=== PATIENT | female | born 1965 | race African-American/Black ===

== ENCOUNTER 2019-02-18 12:06 | Inpatient (IN) | payer OTHER ==
--- NOTE | 2019-02-18 12:26 | PDOC ---
Rapid Medical Evaluation Time Seen by Provider: 02/18/19 12:24 Medical Evaluation: 02/18/19 12:24 I have performed a brief in-person evaluation of this patient. The patient presents with a chief complaint of: short of breath Pertinent physical exam findings:stable and in NAD, non-focal I have ordered the following:labs, ekg The patient will proceed to the ED for further evaluation.
--- NOTE | 2019-02-18 12:38 | PDOC ---
History of Present Illness - General Chief Complaint: Shortness of Breath Stated Complaint: DIFF BREATHING Time Seen by Provider: 02/18/19 12:24 - History of Present Illness Initial Comments: 02/18/19 13:47 The patient is a 53 year old female with a history of HTN, HLD, DM, COPD, CHF, Bronchitis, who presents for evaluation of shortness of breath and chest pain. The patient reports a 2 day history of worsening shortness of breath worse with lying flat at night prompting her presentation to the ED for further evaluation. She also notes intermittent bilateral poorly described chest pain. She notes that she was seen at [facility] 1 month ago and diagnosed with a pneumonia after a chest CTA. She otherwise denies fevers, chills, nausea, vomiting, abdominal pain, or changes with urination or bowel movements. Past History - Past Medical History Allergies/Adverse Reactions: Allergies Allergy/AdvReac Type Severity Reaction Status Date / Time doxycycline Allergy Verified 02/18/19 18:11 erythromycin base Allergy Verified 02/18/19 18:11 Penicillins Allergy Verified 02/18/19 18:11 tetracycline Allergy Verified 02/18/19 18:11 Home Medications: Ambulatory Orders Aspirin [ASA -] 81 mg PO DAILY 02/18/19 Atorvastatin Ca [Lipitor] 40 mg PO HS 02/18/19 Diazepam [Valium] 5 mg PO ONCE 02/18/19 Gabapentin 300 mg PO DAILY 02/18/19 Metoprolol Succinate 25 mg PO DAILY 02/18/19 Omeprazole 20 mg PO DAILY 02/18/19 Paroxetine HCl [Paxil -] 10 mg PO DAILY 02/18/19 Sotalol HCl [Betapace AF] 80 mg PO DAILY 02/18/19 Tiotropium Br/Olodaterol HCl [Stiolto Respimat Inhal [place]] 2.5 puff PO DAILY Varenicline Tartrate [Chantix -] 10 mg PO DAILY 02/18/19 Warfarin Sodium [Coumadin] 10 mg PO DAILY 02/18/19 - Suicide/Smoking/Psychosocial Hx Smoking History: Never smoked Have you smoked in the past 12 months: No Information on smoking cessation initiated: No Hx Alcohol Use: No Drug/Substance Use Hx: No Review of Systems - Review of Systems Comments:: 02/18/19 13:55 Constitutional: No fevers, chills, fatigue, malaise HEENT: No Rhinorrhea, nasal congestion, visual changes Cardiovascular: Chest pain, Lightheadedness. No syncope, palpitations, Respiratory: SOB. No Cough, Hemoptysis, Gastrointestinal: No Abdominal pain, Nausea, Vomiting, Constipation, Diarrhea, Melena Genitourinary: No Dysuria, Frequency, Urgency, Hesitancy, Hematuria, Flank pain Musculoskeletal: No Myalgia, arthralgia Skin: No rashes, itching, bruising, pallor Neurologic: No Headache, Dizziness, Numbness, Weakness, or Tingling Psychiatric: No Hallucinations. No SI or HI *Physical Exam - Vital Signs Last Vital Signs Temp Pulse Resp BP Pulse Ox 98.2 F 71 16 155/85 100 02/18/19 12:26 02/18/19 12:26 02/18/19 12:26 02/18/19 12:26 02/18/19 12:26 - Physical Exam Comments: 02/18/19 13:56 General Appearance: Nourished. No Apparent Distress HEENT: No Pharyngeal Erythema, Tonsillar Exudate, Tonsillar Erythema Neck: No Cervical Lymphadenopathy Respiratory/Chest: Decreased breath sounds at the bases bilaterally. No Crackles, Rales, Rhonchi, Wheezing Cardiovascular: Regular Rhythm, Regular Rate. Systolic murmur noted on exam. No Gallops, Rubs Gastrointestinal/Abdominal: Normal Bowel Sounds, Soft. No Guarding, Rebound, Tenderness Musculoskeletal: No CVA Tenderness Extremity: Normal Capillary Refill Integumentary: Normal Color, Dry, Warm Neurologic: Fully Oriented, Alert, Normal Mood/Affect, Normal Response, ED Treatment Course - LABORATORY CBC & Chemistry Diagram: 02/18/19 12:54 02/18/19 12:27 Medical Decision Making - Medical Decision Making 02/18/19 13:57 The patient is a 53 year old female with a history of HTN, HLD, DM, COPD, CHF, Bronchitis, who presents for evaluation of shortness of breath and chest pain. Differential includes but is not limited to: COPD, CHF, ACS, Infectious, Metabolic Derangement. Given the patient's history and physical exam, we will obtain a cbc, cmp, troponin, bnp, coags, chest plain film, ekg to evaluate further. We will continue to monitor and reassess while here in the ED. 02/18/19 16:50 CBC, cmp are unremarkable. Troponin is unremarkable. BNP is elevated to 2000s. Chest plain film demonstrates pulmonary congestion. We discussed the case with the patient's regional sales executive Dr. Yanez who recommended admission for diuriesis. We discussed the case with the covering regional sales executive. Dr. Aceves who has come to evaluate the patient. We discussed the case with the admitting team who accepted the patient for admission. We will treat the patient with lasix here in the ED. *DC/Admit/Observation/Transfer Diagnosis at time of Disposition: SOB (shortness of breath) CHF (congestive heart failure) Qualifiers: Heart failure type: unspecified Heart failure chronicity: unspecified Qualified Code(s): I50.9 - Heart failure, unspecified - Discharge Dispostion Condition at time of disposition: Stable Decision to Admit order: Yes - Referrals - Patient Instructions - Post Discharge Activity
[2019-02-18 13:25] LABS: BASO % 1.5 % (0-2.0); EOS % 1.4 % (0-4.5); HEMATOCRIT 29.2 % (32.4-45.2); HEMOGLOBIN 8.9 GM/dL (10.7-15.3); LYMPH % 8.1 % (8-40); MCHC 30.4 g/dl (32.0-36.0); MEAN CELL VOLUME 63.3 fl (80-96); MEAN PLT VOLUME 8.5 fl (7.5-11.1); MONO % 13.3 % (3.8-10.2); NEUT % 75.7 % (42.8-82.8); PLATELET COUNT 368 K/MM3 (134-434); RBC 4.61 M/mm3 (3.60-5.2); RDW 24.2 % (11.6-15.6); WHITE BLOOD COUNT 10.5 K/mm3 (4.0-10.0)
[2019-02-18 13:33] LABS: MCH 19.2 pg (25.7-33.7)
[2019-02-18 13:41] LABS: INR 3.17 (0.83-1.09); PROTHROMBIN TIME (PATIENT) 37.8 SEC (9.7-13.0)
[2019-02-18 13:44] LABS: ACTIVATED PTT 47.9 SECONDS (25.2-36.5)
[2019-02-18 13:56] LABS: ALBUMIN 3.7 g/dl (3.4-5.0); ALK PHOS 74 U/L (45-117); ANION GAP 8 MMOL/L (8-16); BILIRUBIN,TOTAL 0.7 mg/dL (0.2-1); BLOOD UREA NITROGEN 10.8 mg/dL (7-18); CALCIUM 8.9 mg/dL (8.5-10.1); CHLORIDE 109 mmol/L (98-107); CO2 26 mmol/L (21-32); CREATININE 0.9 mg/dL (0.55-1.3); GLUCOSE,RANDOM 107 mg/dL (74-106); N-TERMINAL BNP 2014.1 pg/ml (5-125); POTASSIUM 4.3 mmol/L (3.5-5.1); SGOT/AST 23 U/L (15-37); SGPT/ALT 32 U/L (13-61); SODIUM 142 mmol/L (136-145); TOT PROT 7.7 g/dl (6.4-8.2)
[2019-02-18] MEDS ORDERED: FUROSEMIDE 40 MG/4 ML INJECTABLE VIAL IVPUSH ONE ×2 (14:43→15:05)
[2019-02-18 14:45] LABS: ANISOCYTOSIS 2+; MACROCYTOSIS 0; PLATELET ESTIMATE NORMAL; TARGET CELLS 1+
[2019-02-18] MEDS ORDERED: FUROSEMIDE 40 MG/4 ML INJECTABLE VIAL ONE (15:02)
--- NOTE | 2019-02-18 15:16 | PDOC ---
Documentation entered by Rosmery Rodriguez SCRIBE, acting as scribe for Sharyn Mohr MD. Sharyn Mohr MD: This documentation has been prepared by the Jennifer rome Mackenzie, SCRIBE, under my direction and personally reviewed by me in its entirety. I confirm that the documentation accurately reflects all work , treatment, procedures, and medical decision making performed by me. Attending Attestation - Resident Resident Name: Anthony Patel - ED Attending Attestation I have performed the following: I have examined & evaluated the patient, The case was reviewed & discussed with the resident, I agree w/resident's findings & plan, Exceptions are as noted - HPI HPI: The patient is a 53 year old female, with a significant PMH of CHF, HTN, DM, recent pneumonia (diagnosed 3 weeks ago), and 5 lymph nodes in her lungs, who presents to the emergency department with progressively worsening SOB and chest pain for 2 days. Patient reports she had been on at home oxygen treatments since being diagnosed with pneumonia 3 weeks ago. Last night however, despite administering her oxygen she had extreme difficulty breathing, sharp chest pain , and a cough that kept her up all night. Patient also notes she has been told she needs an MVR. The patient denies headache and dizziness. Denies fever, chills, nausea, vomiting, diarrhea and constipation. Denies dysuria, frequency, urgency and hematuria. Allergies: As per resident note Past surgical history: As per resident note Social history: None reported PCP: Dr. Celina Jaimes - Physicial Exam PE: GENERAL: Awake, alert, and fully oriented, in no acute distress HEAD: No signs of trauma EYES: PERRLA, EOMI, sclera anicteric, conjunctiva clear ENT: Auricles normal inspection, hearing grossly normal, nares patent, oropharynx clear without exudates. Moist mucosa NECK: Normal ROM, supple, no lymphadenopathy, JVD, or masses LUNGS: Dec air entry at bases B/L HEART: Regular rate and rhythm, normal S1 and S2, no murmurs, rubs or gallops ABDOMEN: Soft, nontender, normoactive bowel sounds. No guarding, no rebound. No masses EXTREMITIES: Normal range of motion, no edema. No clubbing or cyanosis. No cords, erythema, or tenderness NEUROLOGICAL: Cranial nerves II through XII grossly intact. Normal speech. Motor and sensation intact SKIN: Warm, Dry, normal turgor, no rashes or lesions noted. - Medical Decision Making Pt with history of rheumatic heart disease presenting with symptoms of heart failure. She is in the process of planning valve replacement, is supposed to get a cath at [facility] in the next few weeks. Case d/w her foundry helper, recommended lasix, then possibly transfer to [facility] as an inpatient if she needs the cath more urgently.
--- NOTE | 2019-02-18 16:02 | CON.CARD ---
Cardiology Consult (text) - Consultation Consultation Note: cc: sob hpi: 53 f hx htn, hld, dchf, copd, cad s/p pci 2016, pafib, dm, mitral stenosis here with sob. Pt was recently diagnosed with sev rheumatic MS with plans for outpt cath/valve surgery but over past several days has noticed worse gonzales. Also with orthopnea and pnd. No anginal cp, palps, dizzy, loc, le edema. In ER found with chf. Sees dr rosa for cardio. pmh: per hpi psh: pci social: no tob fam: no premature cad, scd ros: per hpi; all others normal meds: Current Medications Generic Name Dose Route Start Last Admin Trade Name Freq PRN Reason Stop Dose Admin Furosemide 40 mg 02/19/19 10:00 Lasix Injection - IVPUSH DAILY GARO pe: Vital Signs Period Temp Pulse Resp BP Sys/Grey Pulse Ox Last 24 Hr 98.2 F-98.2 F 70-71 16-16 155-155/85-85 99-100 nad no jvd rrr s1s2 no mrg scattered rhonchi, nl eff aaox3 no le e/c/c abd nt nd pos bs no jaundice diaphoresis pos dp pt no carotid bruits Laboratory Last Values WBC 10.5 K/mm3 (4.0-10.0) H 02/18/19 12:54 RBC 4.61 M/mm3 (3.60-5.2) 02/18/19 12:54 Hgb 8.9 GM/dL (10.7-15.3) L 02/18/19 12:54 Hct 29.2 % (32.4-45.2) L 02/18/19 12:54 MCV 63.3 fl (80-96) L 02/18/19 12:54 MCH 19.2 pg (25.7-33.7) L 02/18/19 12:54 MCHC 30.4 g/dl (32.0-36.0) L 02/18/19 12:54 RDW 24.2 % (11.6-15.6) H 02/18/19 12:54 Plt Count 368 K/MM3 (134-434) 02/18/19 12:54 MPV 8.5 fl (7.5-11.1) 02/18/19 12:54 Absolute Neuts (auto) 7.9 K/mm3 (1.5-8.0) 02/18/19 12:54 Neutrophils % 75.7 % (42.8-82.8) 02/18/19 12:54 Neutrophils % (Manual) 55.2 % (42.8-82.8) 02/18/19 12:54 Band Neutrophils % 0.0 % 02/18/19 12:54 Lymphocytes % 8.1 % (8-40) 02/18/19 12:54 Lymphocytes % (Manual) 34.4 % (8-40) 02/18/19 12:54 Monocytes % 13.3 % (3.8-10.2) H 02/18/19 12:54 Monocytes % (Manual) 8 % (3.8-10.2) 02/18/19 12:54 Eosinophils % 1.4 % (0-4.5) 02/18/19 12:54 Eosinophils % (Manual) 1.1 % (0-4.5) 02/18/19 12:54 Basophils % 1.5 % (0-2.0) 02/18/19 12:54 Basophils % (Manual) 1.0 % (0-2.0) 02/18/19 12:54 Myelocytes % (Man) 0 % (0-2) 02/18/19 12:54 Promyelocytes % (Man) 0 % (0-2) 02/18/19 12:54 Blast Cells % (Manual) 0 % (0-0) 02/18/19 12:54 Nucleated RBC % 0 % (0-0) 02/18/19 12:54 Metamyelocytes 0 % (0-2) 02/18/19 12:54 Platelet Estimate Normal 02/18/19 12:54 Polychromasia 1+ 02/18/19 12:54 Poikilocytosis 1+ 02/18/19 12:54 Anisocytosis 2+ 02/18/19 12:54 Microcytosis 2+ 02/18/19 12:54 Macrocytosis 0 02/18/19 12:54 Target Cells 1+ 02/18/19 12:54 Schistocytes 1+ 02/18/19 12:54 PT with INR 37.80 SEC (9.7-13.0) H 02/18/19 12:54 INR 3.17 (0.83-1.09) H 02/18/19 12:54 PTT (Actin FS) 47.9 SECONDS (25.2-36.5) H 02/18/19 12:54 Sodium 142 mmol/L (136-145) 02/18/19 12:27 Potassium 4.3 mmol/L (3.5-5.1) 02/18/19 12:27 Chloride 109 mmol/L (98-107) H 02/18/19 12:27 Carbon Dioxide 26 mmol/L (21-32) 02/18/19 12:27 Anion Gap 8 MMOL/L (8-16) 02/18/19 12:27 BUN 10.8 mg/dL (7-18) 02/18/19 12:27 Creatinine 0.9 mg/dL (0.55-1.3) 02/18/19 12:27 Est GFR (CKD-EPI)AfAm 85.20 02/18/19 12:27 Est GFR (CKD-EPI)NonAf 73.51 02/18/19 12:27 Random Glucose 107 mg/dL (74-106) H 02/18/19 12:27 Calcium 8.9 mg/dL (8.5-10.1) 02/18/19 12:27 Total Bilirubin 0.7 mg/dL (0.2-1) 02/18/19 12:27 AST 23 U/L (15-37) 02/18/19 12:27 ALT 32 U/L (13-61) 02/18/19 12:27 Alkaline Phosphatase 74 U/L (45-117) 02/18/19 12:27 Creatine Kinase 141 U/L (26-192) 02/18/19 12:27 Troponin I < 0.02 ng/ml (0.00-0.05) 02/18/19 12:27 B-Natriuretic Peptide 2014.1 pg/ml (5-125) H 02/18/19 12:27 Total Protein 7.7 g/dl (6.4-8.2) 02/18/19 12:27 Albumin 3.7 g/dl (3.4-5.0) 02/18/19 12:27 ecg: sr, no ischemic changes cxr: chf a/p: 53 f hx htn, hld, dchf, copd, cad s/p pci 2016, pafib, dm, mitral stenosis here with sob. sob, acute diastolic chf, mitral stenosis: -Pt was recently diagnosed with sev rheumatic MS with plans for outpt cath/ valve surgery but now presents with chf -iv lasix 40 qd to start, daily chem7/weight -d/w with pts cardio dr rosa and [place] [facility] [place] [facility] when resp status improved for cath and mitral valve eval htn: -cont home meds cad s/p pci: -no signs acs, continue anabela on tele -cont ac pafib: -in sr now -on coumadin, would hold for now and start hep gtt when INR<2 in preparation for cath/mv surgery at [facility]
--- NOTE | 2019-02-18 19:21 | CON.PULM ---
Consult Consult Specialty:: PULMONARY Referred by:: CHLOE Reason for Consultation:: SOB - History of Present Illness Chief Complaint: SOB/VALLES History of Present Illness: 53 AA FEMALE ADMITTED WITH VALLES OVER PAST 1-2 DAYS. SHE HAS A H/O RH MITRAL STENOSIS/CHF/COPD/ACTIVE SMOKING/PCI STENT 2016 HTM/PAF/DM/HPL STATES SHE HAD A 'CLOT " AND IS ON COUMADIN. SHE WASN'T SURE IF THE CLOT WAS IN THE LUNG OR LOWER EXT. RECENT CTA CHEST DONE AT [facility] WAS SIGNIFICANT FOR MEDIASTINAL AND HILAR ADENOPATHY AND A MOSAIC PATTERN WHICH WAS THOUGHT TO BE DUE TO VOLUME OVERLOAD. SHE WAS WORKED UP RECENTLY AT [facility] AND HER MEDICAL TEAM IS THER BUT DECIDED TO COME TO [facility] . DENIES CHEST PAIN/COUGH OR FEVER. - History Source History Provided By: Patient, Medical Record Limitations to Obtaining History: No Limitations - Past Medical History VP SECURITY: No: Alzheimer's, CVA, Dementia, Migraine, Multiple Sclerosis, Peripheral Neuropathy, Parkinson's, Seizure, Syncope, TIA, Vertigo, Other Cardio/Vascular: Yes: AFIB, CAD, CHF, HTN, Hyperlipdemia, Mitral Stenosis, Murmur Pulmonary: Yes: COPD Gastrointestinal: No: Ascites, Cancer, Constipation, Crohn's Disease, Diverticulitis, Diverticulosis, Esophageal Varices, Gastritis, GERD, GI Bleed, Hemorrhoids, Hiatal Hernia, Inflamatory Bowel Disease, Irritable Bowel Disease, Pancreatitis, Peptic Ulcer Disease, Ulcerative Colitis, Other Hepatobiliary: No: Cirrhosis, Cholelithiasis, Cholecystitis, Choledocholithiasis , Hepatitis A, Hepatitis B, Hepatitis C, Other Reproductive: Yes: Postmenopausal Heme/Onc: Yes: Anemia (PCI STENT) - Alcohol/Substance Use Hx Alcohol Use: No - Smoking History Smoking history: Never smoked Have you smoked in the past 12 months: No - Social History ADL: Independent Place of : [place] History of Recent Travel: Yes Home Medications - Allergies Allergies/Adverse Reactions: Allergies Allergy/AdvReac Type Severity Reaction Status Date / Time doxycycline Allergy Verified 02/18/19 18:11 erythromycin base Allergy Verified 02/18/19 18:11 Penicillins Allergy Verified 02/18/19 18:11 tetracycline Allergy Verified 02/18/19 18:11 - Home Medications Home Medications: Ambulatory Orders Aspirin [ASA -] 81 mg PO DAILY 02/18/19 Atorvastatin Ca [Lipitor] 40 mg PO HS 02/18/19 Diazepam [Valium] 5 mg PO ONCE 02/18/19 Gabapentin 300 mg PO DAILY 02/18/19 Metoprolol Succinate 25 mg PO DAILY 02/18/19 Omeprazole 20 mg PO DAILY 02/18/19 Paroxetine HCl [Paxil -] 10 mg PO DAILY 02/18/19 Sotalol HCl [Betapace AF] 80 mg PO DAILY 02/18/19 Tiotropium Br/Olodaterol HCl [Stiolto Respimat Inhal [place]] 2.5 puff PO DAILY Varenicline Tartrate [Chantix -] 10 mg PO DAILY 02/18/19 Warfarin Sodium [Coumadin] 10 mg PO DAILY 02/18/19 Review of Systems - Review of Systems Cardiovascular: reports: Shortness of Breath Respiratory: reports: Exercise Intolerance, Orthopnea, SOB on Exertion Gastrointestinal: reports: No Symptoms Genitourinary: reports: No Symptoms Breasts: reports: No Symptoms Reported Physical Exam Vital Sings: Vital Signs Temperature 98.2 F 02/18/19 12:26 Pulse Rate 71 02/18/19 12:26 Respiratory Rate 16 02/18/19 12:26 Blood Pressure 155/85 02/18/19 12:26 O2 Sat by Pulse Oximetry (%) 100 02/18/19 12:26 Constitutional: Yes: Calm Eyes: Yes: EOM Intact HENT: Yes: Normocephalic Neck: Yes: Trachea Midline Cardiovascular: Yes: Regular Rate and Rhythm, S1, S2 Respiratory: Yes: CTA Bilaterally Gastrointestinal: Yes: Normal Bowel Sounds Edema: No Neurological: Yes: Alert Psychiatric: Yes: Alert Labs: CBC, BMP 02/18/19 12:54 02/18/19 12:27 REST REVIEWED Imaging - Results X-ray: Report Reviewed, Image Reviewed EKG: Report Reviewed Problem List - Problems (1) CHF (congestive heart failure) Code(s): I50.9 - HEART FAILURE, UNSPECIFIED Qualifiers: Heart failure type: unspecified Heart failure chronicity: unspecified Qualified Code(s): I50.9 - Heart failure, unspecified (2) SOB (shortness of breath) Code(s): R06.02 - SHORTNESS OF BREATH Assessment/Plan 53 AA WITH CHF/MITRAL STENOSIS/COPD/HTN/HPL/PAF/PCI STENT/ ?VTE IN PAST/ON WARFARIN PRESENTS WITH WORSENING HEART FAILURE OF NOTE IS HILAR AND MEDIASTINAL ADENOPATHY SEEN ON RECENT CHEST IMAGING OF UNKNOWN ETIOLOGY ? SARCOID ? SARCOID MYOCARDITIS PATIENT IS PLANNED FOR A RIGHT/LEFT HEART CATH AND POSSIBLE VALVE REPAIR CONTINUE CURRENT TREATMENT PLAN PER CARDIOLOGY TRY TO OBTAIN WORKUP ALREADY DONE NOT TO DUPLICATE TESTING WILL FOLLOW Elias MARTINEZ MD
[2019-02-18] MEDS: VARENICLINE TARTRATE 1 MG TAB PO SCH (23:38)
[2019-02-19 02:57] VITALS: BMI 33.6
[2019-02-19 07:51] LABS: HEMATOCRIT 27.7 % (32.4-45.2); HEMOGLOBIN 8.4 GM/dL (10.7-15.3); MCHC 30.3 g/dl (32.0-36.0); MEAN PLT VOLUME 9.3 fl (7.5-11.1); RDW 24.4 % (11.6-15.6); WHITE BLOOD COUNT 6.9 K/mm3 (4.0-10.0)
[2019-02-19 07:56] LABS: INR 3.38 (0.83-1.09); PROTHROMBIN TIME (PATIENT) 40.4 SEC (9.7-13.0)
[2019-02-19 08:15] LABS: ALBUMIN 3.4 g/dl (3.4-5.0); ALK PHOS 69 U/L (45-117); ANION GAP 7 MMOL/L (8-16); BILIRUBIN,TOTAL 0.6 mg/dL (0.2-1); CALCIUM 9.1 mg/dL (8.5-10.1); CHLORIDE 108 mmol/L (98-107); CO2 27 mmol/L (21-32); CREATININE 0.8 mg/dL (0.55-1.3); GLUCOSE,RANDOM 93 mg/dL (74-106); MAGNESIUM 1.9 mg/dL (1.8-2.4); N-TERMINAL BNP 800.1 pg/ml (5-125); PHOSPHOROUS 4.6 mg/dL (2.5-4.9); POTASSIUM 4.1 mmol/L (3.5-5.1); SGOT/AST 15 U/L (15-37); SGPT/ALT 27 U/L (13-61); SODIUM 142 mmol/L (136-145); TOT PROT 7.1 g/dl (6.4-8.2)
--- NOTE | 2019-02-19 08:33 | PN ---
Progress Note, Physician Chief Complaint: sob History of Present Illness: sob when washing up this am urinating a lot with lasix no cp, palpit, syncope no cigs - Current Medication List Current Medications: Active Medications Aspirin (Asa -) 81 mg PO DAILY GARO Atorvastatin Calcium (Lipitor -) 40 mg PO HS [facility] Furosemide (Lasix Injection -) 40 mg IVPUSH DAILY [facility] Gabapentin (Neurontin -) 300 mg PO DAILY [facility] Metoprolol Succinate (Toprol Xl -) 25 mg PO DAILY [facility] Pantoprazole Sodium (Protonix -) 20 mg PO DAILY [facility] Paroxetine HCl (Paxil -) 10 mg PO DAILY [facility] Sotalol HCl (Betapace -) 80 mg PO DAILY [facility] Varenicline (Chantix -) 1 mg PO BID [facility] Last Admin: 02/18/19 23:38 Dose: 1 mg Warfarin Sodium (Coumadin -) 10 mg PO DAILY@1800 [facility] - Objective Vital Signs: Vital Signs Temperature 98.8 F 02/19/19 05:45 Pulse Rate 78 02/19/19 05:45 Respiratory Rate 18 02/19/19 05:45 Blood Pressure 131/80 02/19/19 05:45 O2 Sat by Pulse Oximetry (%) 94 L 02/18/19 22:00 Constitutional: Yes: No Distress, Calm Eyes: No: Sclera Icterus HENT: No: Nasal Congestion Cardiovascular: Yes: Regular Rate and Rhythm, S1, S2, Other (PMI non diplaced). No: JVD, Gallop, Murmur Respiratory: Yes: CTA Bilaterally. No: Accessory Muscle Use, Rales, Wheezes Gastrointestinal: Yes: Normal Bowel Sounds, Soft. No: Tenderness Musculoskeletal: Yes: Other (No kyphosis) Extremities: No: Cyanosis Edema: No Integumentary: No: Jaundice Neurological: Yes: Alert, Oriented (x3) Psychiatric: No: Agitated Labs: CBC, BMP 02/19/19 06:14 INR, PTT INR 3.38 (0.83-1.09) H 02/19/19 06:14 Assessment/Plan ecg: sr, no ischemic changes, long QT (qtc > 500) cxr: chf tele: SR, artifact a/p: 53 f hx htn, hld, dchf, copd, cad s/p pci 2016, pafib, dm, mitral stenosis here with sob. sob, acute diastolic chf, mitral stenosis: -Pt was recently diagnosed with sev rheumatic MS with plans for outpt cath/ valve surgery but now presents with chf -iv lasix 40 qd started here, good subjective diuresis. wt down 1 lb, still signif sob with activity. incr lasix 40 iv bid. -BNP 2K-->800 -d/w with pts cardio dr rosa and plan will be to [facility] and transfer to [facility] when resp status improved for cath and mitral valve eval pafib: -in sr now -pt confirms correct home dose of sotalol is 80 bid, and metoprolol 25 continued she says since her prior PCI. -not antoni here. -QTC > 500, K/Mag good--aggressive repletion. -rpt ECG. if QT > 500 will have to stop sotalol (even though this low dose is rarely QT prolonging) -holding coumadin in anticipation of cath/MV surgery. -trend INR, start hep gtt when INR <2 htn: -bp controlled -cont home meds cad s/p pci (2015): -no signs acs, continue anabela on tele -cont ac plus aspirin per dr rosa prior tx plan
[2019-02-19] MEDS ORDERED: PT OWN MED DRAWER 7, Y5N ONE ×3 (09:07→21:37)
[2019-02-19 09:21] LABS: MCH 19.1 pg (25.7-33.7); PLATELET COUNT 343 K/MM3 (134-434)
--- NOTE | 2019-02-19 09:22 | PN ---
Progress Note, Physician History of Present Illness: 53 f hx htn, hld, dchf, copd, cad s/p pci 2016, pafib, dm, mitral stenosis here with sob. - Current Medication List Current Medications: Active Medications Aspirin (Asa -) 81 mg PO DAILY [facility] Atorvastatin Calcium (Lipitor -) 40 mg PO HS [facility]O Furosemide (Lasix Injection -) 40 mg IVPUSH DAILY [facility] Gabapentin (Neurontin -) 300 mg PO DAILY [facility] Metoprolol Succinate (Toprol Xl -) 25 mg PO DAILY [facility] Pantoprazole Sodium (Protonix -) 20 mg PO DAILY [facility] Paroxetine HCl (Paxil -) 10 mg PO DAILY [facility] Sotalol HCl (Betapace -) 80 mg PO DAILY [facility] Varenicline (Chantix -) 1 mg PO BID [facility] Last Admin: 02/18/19 23:38 Dose: 1 mg Warfarin Sodium (Coumadin -) 10 mg PO DAILY@1800 [facility] - Objective Vital Signs: Vital Signs Temperature 98.8 F 02/19/19 05:45 Pulse Rate 78 02/19/19 05:45 Respiratory Rate 18 02/19/19 08:35 Blood Pressure 131/80 02/19/19 05:45 O2 Sat by Pulse Oximetry (%) 94 L 02/19/19 08:35 Cardiovascular: Yes: Murmur, S1, S2 Respiratory: Yes: Regular, CTA Bilaterally Gastrointestinal: Yes: Normal Bowel Sounds, Soft. No: Tenderness Labs: CBC, BMP 02/19/19 06:14 02/19/19 06:14 INR, PTT INR 3.38 (0.83-1.09) H 02/19/19 06:14 Problem List - Problems (1) CHF (congestive heart failure) Assessment/Plan: IV LASIX MONITOR LABS Code(s): I50.9 - HEART FAILURE, UNSPECIFIED Qualifiers: Heart failure type: unspecified Heart failure chronicity: unspecified Qualified Code(s): I50.9 - Heart failure, unspecified (2) Mitral valve stenosis Assessment/Plan: CARDIO ON BOARD WILL NEED CATH AND POSSIBLE MV SURGERY [facility] Code(s): I05.0 - RHEUMATIC MITRAL STENOSIS (3) SOB (shortness of breath) Assessment/Plan: ABOVE Code(s): R06.02 - SHORTNESS OF BREATH (4) CAD (coronary artery disease) Assessment/Plan: Orders 02/19/19 10:00 Aspirin [ASA -] 81 mg PO DAILY Metoprolol Succinate [Toprol Xl -] 25 mg PO DAILY 02/19/19 22:00 Atorvastatin Ca [Lipitor -] 40 mg PO HS Code(s): I25.10 - ATHSCL HEART DISEASE OF [place] CORONARY ARTERY W/O ANG PCTRS (5) COPD (chronic obstructive pulmonary disease) Code(s): J44.9 - CHRONIC OBSTRUCTIVE PULMONARY DISEASE, UNSPECIFIED (6) Anemia Assessment/Plan: W/U ORDERED HEM CONSULT Code(s): D64.9 - ANEMIA, UNSPECIFIED
[2019-02-19] MEDS: PANTOPRAZOLE 20 MG TABLET (FP) PO SCH (09:24)
[2019-02-19] MEDS: metoPROLOL SUCCINATE 25 MG TAB.SR.24H (FP) PO SCH (09:24)
[2019-02-19] MEDS: PARoxetine HCL 10 MG TABLET PO SCH (09:24)
[2019-02-19] MEDS ORDERED: FUROSEMIDE 40 MG/4 ML INJECTABLE VIAL IVPUSH SCH (10:00)
[2019-02-19] MEDS ORDERED: GABAPENTIN 300 MG CAPSULE (FP) PO SCH ×2 (10:00→21:49)
[2019-02-19] MEDS ORDERED: SOTALOL HCL 80 MG TABLET (FP) PO SCH (10:00)
[2019-02-19] MEDS ORDERED: VARENICLINE TARTRATE 0.5 MG TAB PO SCH (10:00)
--- NOTE | 2019-02-19 10:17 | PN ---
Progress Note, Physician History of Present Illness: PULMONARY ALERT,FEELING BETTER,LESS DYSPNEIC - Current Medication List Current Medications: Active Medications Aspirin (Asa -) 81 mg PO DAILY [facility] Atorvastatin Calcium (Lipitor -) 40 mg PO HS [facility] Furosemide (Lasix Injection -) 40 mg IVPUSH DAILY [facility] Last Admin: 02/19/19 09:24 Dose: 40 mg Gabapentin (Neurontin -) 300 mg PO DAILY [facility] Last Admin: 02/19/19 09:24 Dose: 300 mg Metoprolol Succinate (Toprol Xl -) 25 mg PO DAILY [facility] Last Admin: 02/19/19 09:24 Dose: 25 mg Pantoprazole Sodium (Protonix -) 20 mg PO DAILY [facility] Last Admin: 02/19/19 09:24 Dose: 20 mg Paroxetine HCl (Paxil -) 10 mg PO DAILY [facility] Last Admin: 02/19/19 09:24 Dose: 10 mg Sotalol HCl (Betapace -) 80 mg PO DAILY [facility] Last Admin: 02/19/19 09:24 Dose: 80 mg Varenicline (Chantix -) 1 mg PO BID [facility] Last Admin: 02/18/19 23:38 Dose: 1 mg Warfarin Sodium (Coumadin -) 10 mg PO DAILY@1800 [facility] - Objective Vital Signs: Vital Signs Temperature 98.8 F 02/19/19 05:45 Pulse Rate 78 02/19/19 05:45 Respiratory Rate 18 02/19/19 08:35 Blood Pressure 131/80 02/19/19 05:45 O2 Sat by Pulse Oximetry (%) 94 L 02/19/19 08:35 Constitutional: Yes: Well Nourished, Calm Eyes: Yes: WNL HENT: Yes: WNL Neck: Yes: WNL Cardiovascular: Yes: Regular Rate and Rhythm, S1, S2 Respiratory: Yes: Rales (BIBASILAR CRACKLES) Gastrointestinal: Yes: Normal Bowel Sounds, Soft Extremities: Yes: WNL Edema: No Labs: CBC, BMP 02/19/19 06:14 02/19/19 06:14 INR, PTT INR 3.38 (0.83-1.09) H 02/19/19 06:14 Assessment/Plan Problem List - Problems (1) CHF (congestive heart failure) Code(s): I50.9 - HEART FAILURE, UNSPECIFIED Qualifiers: Heart failure type: unspecified Heart failure chronicity: unspecified Qualified Code(s): I50.9 - Heart failure, unspecified (2) SOB (shortness of breath) Code(s): R06.02 - SHORTNESS OF BREATH Assessment/Plan 53 AA WITH CHF/MITRAL STENOSIS/COPD/HTN/HPL/PAF/PCI STENT/ ?VTE IN PAST/ON WARFARIN ACUTE ON CHRONIC CONGESTIVE HEART FAILURE HILAR AND MEDIASTINAL ADENOPATHY SEEN ON RECENT CHEST IMAGING OF UNKNOWN ETIOLOGY ? SARCOID ? SARCOID MYOCARDITIS PATIENT IS PLANNED FOR A RIGHT/LEFT HEART CATH AND POSSIBLE VALVE REPAIR CONTINUE LASIX F/U CHEST X-RAYS DAILY WT DR TRUJILLO
[2019-02-19] MEDS: VARENICLINE TARTRATE 1 MG TAB PO SCH ×2 (10:36→21:40)
[2019-02-19] MEDS: ASPIRIN 81 MG CHEWABLE TABLETS PO SCH (10:36)
[2019-02-19 11:18] LABS: ANISOCYTOSIS 2+; MACROCYTOSIS 1+; PLATELET ESTIMATE NORMAL; TARGET CELLS 1+; TEAR DROP CELLS 1+
[2019-02-19] MEDS: FUROSEMIDE 40 MG/4 ML INJECTABLE VIAL IVPUSH SCH (17:05)
[2019-02-19] MEDS ORDERED: WARFARIN NA 10 MG TABLET (FP) PO SCH (18:00)
--- NOTE | 2019-02-19 18:12 | CONSULT ---
Consult Consult Specialty:: Heme Referred by:: Dr. Joshua Reason for Consultation:: Anemia - History of Present Illness Chief Complaint: SOB History of Present Illness: 53F, smoker, with HTN, DM, COPD, atrial fibrillation on warfarin, mitral stenosis, CAD s/p stent in 2016,CHF, admission for PNA at [facility] 1 month ago admitted with chest pain and SOB. Being treated for ADHF. Found to have hilar and mediastinal LAD on recent chest imaging. Planned for right/left heart cath and possible valve repair. Pulmonology considering sarcoid as etiology of LAD. Hematology consulted for anemia. Hgb 8.9, MCV 62, RBC ount normal. No prior labs. WBC, plt count normal. B12 normal. Ferritn 61, rest of iron studies pending. Pt has been told that she is anemic in the past and has been PO iron at some point but could not tolerate due to stomach upset. No menstrual periods since age 33 (stopped on their own). Never had colonoscopy. No melena, hematochezia. Reports that pt's mother and children also have anemia but does not know etiology. - Past Medical History C ENGINEER: No: Alzheimer's, CVA, Dementia, Migraine, Multiple Sclerosis, Peripheral Neuropathy, Parkinson's, Seizure, Syncope, TIA, Vertigo, Other Cardio/Vascular: Yes: AFIB, CAD, CHF, HTN, Hyperlipdemia, Mitral Stenosis, Murmur Pulmonary: Yes: COPD Gastrointestinal: No: Ascites, Cancer, Constipation, Crohn's Disease, Diverticulitis, Diverticulosis, Esophageal Varices, Gastritis, GERD, GI Bleed, Hemorrhoids, Hiatal Hernia, Inflamatory Bowel Disease, Irritable Bowel Disease, Pancreatitis, Peptic Ulcer Disease, Ulcerative Colitis, Other Hepatobiliary: No: Cirrhosis, Cholelithiasis, Cholecystitis, Choledocholithiasis , Hepatitis A, Hepatitis B, Hepatitis C, Other - Alcohol/Substance Use Hx Alcohol Use: No - Smoking History Smoking history: Never smoked Have you smoked in the past 12 months: No - Social History ADL: Independent History of Recent Travel: Yes Home Medications - Allergies Allergies/Adverse Reactions: Allergies Allergy/AdvReac Type Severity Reaction Status Date / Time doxycycline Allergy Verified 02/18/19 18:11 erythromycin base Allergy Verified 02/18/19 18:11 Penicillins Allergy Verified 02/18/19 18:11 tetracycline Allergy Verified 02/18/19 18:11 - Home Medications Home Medications: Ambulatory Orders Aspirin [ASA -] 81 mg PO DAILY 02/18/19 Atorvastatin Ca [Lipitor] 40 mg PO HS 02/18/19 Diazepam [Valium] 5 mg PO ONCE 02/18/19 Gabapentin 300 mg PO DAILY 02/18/19 Metoprolol Succinate 25 mg PO DAILY 02/18/19 Omeprazole 20 mg PO DAILY 02/18/19 Paroxetine HCl [Paxil -] 10 mg PO DAILY 02/18/19 Sotalol HCl [Betapace AF] 80 mg PO DAILY 02/18/19 Tiotropium Br/Olodaterol HCl [Stiolto Respimat Inhal [place]] 2.5 puff PO DAILY Varenicline Tartrate [Chantix -] 10 mg PO DAILY 02/18/19 Warfarin Sodium [Coumadin] 10 mg PO DAILY 02/18/19 Review of Systems - Review of Systems Constitutional: reports: No Symptoms Cardiovascular: reports: No Symptoms, Shortness of Breath Respiratory: reports: No Symptoms, SOB, SOB on Exertion Gastrointestinal: reports: No Symptoms. denies: Abdominal Pain, Melena, Rectal Bleeding, Vomiting Hematology/Lymphatic: reports: No Symptoms. denies: Easily Bruised, Excessive Bleeding Physical Exam Vital Signs: Vital Signs Temperature 98.6 F 02/19/19 17:06 Pulse Rate 73 02/19/19 17:06 Respiratory Rate 18 02/19/19 17:06 Blood Pressure 114/67 02/19/19 17:06 O2 Sat by Pulse Oximetry (%) 94 L 02/19/19 08:35 Constitutional: Yes: Well Nourished, No Distress, Calm Eyes: Yes: Conjunctiva Clear Cardiovascular: Yes: Regular Rate and Rhythm Respiratory: Yes: Regular, CTA Bilaterally Gastrointestinal: Yes: Soft. No: Tenderness Labs: CBC, BMP 02/19/19 06:14 02/19/19 06:14 Assessment/Plan Differential of significantly microcytic anemia is generally limited to iron deficiency and thalassemia. Ferritin normal but does not rule out iron deficiency. Rest of iron studies (pending) may help clarify. Please check retics, send hemoglobin electrophoresis. Suspect alpha thal given normal RBC. Would send alpha globin mutation as well
[2019-02-19] MEDS: SOTALOL HCL 80 MG TABLET (FP) PO SCH (21:40)
[2019-02-19] MEDS ORDERED: ATORVASTATIN CA 40 MG TABLET (FP) PO SCH (22:00)
[2019-02-19] MEDS: GABAPENTIN 300 MG CAPSULE (FP) PO SCH (22:10)
[2019-02-20] MEDS: GABAPENTIN 300 MG CAPSULE (FP) PO SCH ×2 (05:29→13:34)
[2019-02-20 07:08] LABS: SERUM IRON SATURATION 7 % (15-55); TOTAL IRON BINDING CAPACITY 456 ug/dL (250-450)
[2019-02-20 07:37] LABS: BLOOD UREA NITROGEN 17.5 mg/dL (7-18); CREATININE 0.9 mg/dL (0.55-1.3); MAGNESIUM 2.2 mg/dL (1.8-2.4); POTASSIUM 4.2 mmol/L (3.5-5.1)
--- NOTE | 2019-02-20 08:38 | PN ---
Progress Note, Physician Chief Complaint: sob History of Present Illness: signif urine output to lasix no more sob going from bed to BR and washing up. has not ambulated in halls. no cp, palpit, presyncope - Current Medication List Current Medications: Active Medications Aspirin (Asa -) [address] [facility] Last Admin: 02/19/19 10:36 Dose: 81 mg Atorvastatin Calcium (Lipitor -) [address] [facility] Last Admin: 02/19/19 21:40 Dose: 40 mg Furosemide (Lasix Injection -) [address] [facility] Last Admin: 02/19/19 17:05 Dose: 40 mg Gabapentin (Neurontin -) [address] [facility] Last Admin: 02/20/19 05:29 Dose: 300 mg Metoprolol Succinate (Toprol Xl -) [address] [facility] Last Admin: 02/19/19 09:24 Dose: 25 mg Pantoprazole Sodium (Protonix -) [address] [facility] Last Admin: 02/19/19 09:24 Dose: 20 mg Paroxetine HCl (Paxil -) [address] [facility] Last Admin: 02/19/19 09:24 Dose: 10 mg Sotalol HCl (Betapace -) [address] [facility] Last Admin: 02/19/19 21:40 Dose: 80 mg Varenicline (Chantix -) [address] [facility] Last Admin: 02/19/19 21:40 Dose: 1 mg Warfarin Sodium (Coumadin -) 10 mg PO DAILY@1800 [facility] - Objective Vital Signs: Vital Signs Temperature 98.1 F 02/20/19 08:04 Pulse Rate 69 02/20/19 08:04 Respiratory Rate 18 02/20/19 08:04 Blood Pressure 125/65 02/20/19 08:04 O2 Sat by Pulse Oximetry (%) 95 02/20/19 08:04 Constitutional: Yes: Well Nourished, No Distress, Calm Cardiovascular: Yes: Regular Rate and Rhythm, S1, S2. No: Gallop, Murmur Respiratory: Yes: Regular, CTA Bilaterally. No: Accessory Muscle Use, Rales, Wheezes Extremities: No: Cold Edema: No Neurological: Yes: Alert, Oriented Psychiatric: No: Agitated Labs: CBC, BMP 02/19/19 06:14 02/20/19 06:05 INR, PTT INR 3.38 (0.83-1.09) H 02/19/19 06:14 Assessment/Plan ecg: sr, no ischemic changes, long QT (qtc > 500) cxr: chf tele: SR, artifact, no PVCs a/p: 53 f hx htn, hld, dchf, copd, cad s/p pci 2016, pafib, dm, mitral stenosis here with sob. sob, acute diastolic chf, mitral stenosis: -Pt was recently diagnosed with sev rheumatic MS with plans for outpt cath/ valve surgery but now presents with chf -02/20: lasix incr'd to 40 bid due to ongoing NYHA III sx's. wt down further, renal fxn stable. sob improved. continue same regimen -BNP 2K-->800 -she appears well-compensated and likely euvolemic. will arrange transfer to [facility] per dr rosa (dr otero service) for cath and w/u of MV intervention. ( results of anemia w/u can be followed up from there) pafib: -in sr now -pt confirms correct home dose of sotalol is 80 bid, and metoprolol 25 continued she says since her prior PCI. -not antoni here. -QTC > 500, K/Mag good--aggressive repletion. rpt ecg pending -cont tele monitoring re: pvc's with R-on-T risk -given plans to transfer to [facility] currently, and tele benign with no freq PVCs/ risk of R-on-T, and prior h/o rapid AF unknown, and pt hi risk for acute pulm edema with rapid AF in setting of mitral stenosis, will cont sotalol for now to avoid rapid AF complicating definitive MV treatment--will plan to obtain EP input at [facility] -holding coumadin in anticipation of invasive cardiac procedures -trend INR, start hep gtt when INR <2 htn: -bp controlled -cont home meds cad s/p pci (2015): -no signs acs, continue anabela on tele -cont ac plus aspirin per dr rosa prior tx plan microcytic anemia: -iron def vs thalassemia per heme -labs pending
[2019-02-20 08:40] LABS: INR 2.34 (0.83-1.09); PROTHROMBIN TIME (PATIENT) 27.9 SEC (9.7-13.0)
[2019-02-20] MEDS ORDERED: PT OWN MED DRAWER 7, Y5N ONE (09:38)
[2019-02-20] MEDS: PARoxetine HCL 10 MG TABLET PO SCH (09:42)
[2019-02-20] MEDS: ASPIRIN 81 MG CHEWABLE TABLETS PO SCH (09:42)
[2019-02-20] MEDS: FUROSEMIDE 40 MG/4 ML INJECTABLE VIAL IVPUSH SCH (09:42)
[2019-02-20] MEDS: metoPROLOL SUCCINATE 25 MG TAB.SR.24H (FP) PO SCH (09:42)
[2019-02-20] MEDS: SOTALOL HCL 80 MG TABLET (FP) PO SCH (09:42)
[2019-02-20] MEDS: PANTOPRAZOLE 20 MG TABLET (FP) PO SCH (09:42)
[2019-02-20] MEDS: VARENICLINE TARTRATE 1 MG TAB PO SCH (09:43)
--- NOTE | 2019-02-20 10:29 | PN ---
Progress Note, Physician History of Present Illness: pulmonary alert,feeling better,less dyspneic,-cp - Current Medication List Current Medications: Active Medications Aspirin (Asa -) 81 mg PO DAILY [facility] Last Admin: 02/20/19 09:42 Dose: 81 mg Atorvastatin Calcium (Lipitor -) 40 mg PO HS [facility] Last Admin: 02/19/19 21:40 Dose: 40 mg Furosemide (Lasix Injection -) 40 mg IVPUSH BIDISORDIL [facility] Last Admin: 02/20/19 09:42 Dose: 40 mg Gabapentin (Neurontin -) 300 mg PO TID [facility] Last Admin: 02/20/19 05:29 Dose: 300 mg Metoprolol Succinate (Toprol Xl -) 25 mg PO DAILY [facility] Last Admin: 02/20/19 09:42 Dose: 25 mg Pantoprazole Sodium (Protonix -) 20 mg PO DAILY [facility] Last Admin: 02/20/19 09:42 Dose: 20 mg Paroxetine HCl (Paxil -) 10 mg PO DAILY [facility] Last Admin: 02/20/19 09:42 Dose: 10 mg Sotalol HCl (Betapace -) 80 mg PO BID [facility] Last Admin: 02/20/19 09:42 Dose: 80 mg Varenicline (Chantix -) 1 mg PO BID [facility] Last Admin: 02/20/19 09:43 Dose: 1 mg Warfarin Sodium (Coumadin -) 10 mg PO DAILY@1800 [facility] - Objective Vital Signs: Vital Signs Temperature 98.4 F 02/20/19 09:47 Pulse Rate 75 02/20/19 09:47 Respiratory Rate 18 02/20/19 09:47 Blood Pressure 123/65 02/20/19 09:47 O2 Sat by Pulse Oximetry (%) 95 02/20/19 08:04 Constitutional: Yes: Well Nourished, Calm Eyes: Yes: WNL HENT: Yes: WNL Neck: Yes: WNL Cardiovascular: Yes: Regular Rate and Rhythm, S1, S2 Respiratory: Yes: Rales (bibasilar rales) Gastrointestinal: Yes: Normal Bowel Sounds, Soft Extremities: Yes: WNL Edema: No Labs: CBC, BMP 02/20/19 06:05 INR, PTT INR 2.34 (0.83-1.09) H 02/20/19 07:38 Assessment/Plan Problem List - Problems (1) CHF (congestive heart failure) Code(s): I50.9 - HEART FAILURE, UNSPECIFIED Qualifiers: Heart failure type: unspecified Heart failure chronicity: unspecified Qualified Code(s): I50.9 - Heart failure, unspecified (2) SOB (shortness of breath) Code(s): R06.02 - SHORTNESS OF BREATH Assessment/Plan 53 AA WITH CHF/MITRAL STENOSIS/COPD/HTN/HPL/PAF/PCI STENT/ ?VTE IN PAST/ON WARFARIN ACUTE ON CHRONIC CONGESTIVE HEART FAILURE HILAR AND MEDIASTINAL ADENOPATHY SEEN ON RECENT CHEST IMAGING OF UNKNOWN ETIOLOGY ? SARCOID ? SARCOID MYOCARDITIS PATIENT IS PLANNED FOR A RIGHT/LEFT HEART CATH AND POSSIBLE VALVE REPAIR CONTINUE LASIX F/U CHEST X-RAYS DAILY WT DR TRUJILLO
--- NOTE | 2019-02-20 11:32 | PN ---
Progress Note, Physician History of Present Illness: 53 f hx htn, hld, dchf, copd, cad s/p pci 2016, pafib, dm, mitral stenosis here with sob. - Current Medication List Current Medications: Active Medications Aspirin (Asa -) 81 mg PO DAILY [facility] Last Admin: 02/20/19 09:42 Dose: 81 mg Atorvastatin Calcium (Lipitor -) 40 mg PO HS [facility] Last Admin: 02/19/19 21:40 Dose: 40 mg Furosemide (Lasix Injection -) 40 mg IVPUSH BIDISORDIL [facility] Last Admin: 02/20/19 09:42 Dose: 40 mg Gabapentin (Neurontin -) 300 mg PO TID [facility] Last Admin: 02/20/19 05:29 Dose: 300 mg Metoprolol Succinate (Toprol Xl -) 25 mg PO DAILY [facility] Last Admin: 02/20/19 09:42 Dose: 25 mg Pantoprazole Sodium (Protonix -) 20 mg PO DAILY [facility] Last Admin: 02/20/19 09:42 Dose: 20 mg Paroxetine HCl (Paxil -) 10 mg PO DAILY [facility] Last Admin: 02/20/19 09:42 Dose: 10 mg Sotalol HCl (Betapace -) 80 mg PO BID [facility] Last Admin: 02/20/19 09:42 Dose: 80 mg Varenicline (Chantix -) 1 mg PO BID [facility] Last Admin: 02/20/19 09:43 Dose: 1 mg Warfarin Sodium (Coumadin -) 10 mg PO DAILY@1800 [facility] - Objective Vital Signs: Vital Signs Temperature 98.4 F 02/20/19 09:47 Pulse Rate 75 02/20/19 09:47 Respiratory Rate 18 02/20/19 09:47 Blood Pressure 123/65 02/20/19 09:47 O2 Sat by Pulse Oximetry (%) 95 02/20/19 08:04 Cardiovascular: Yes: Murmur, S1, S2 Respiratory: Yes: Regular, CTA Bilaterally Edema: LLE: Trace, RLE: Trace Labs: CBC, BMP 02/19/19 06:14 02/20/19 06:05 INR, PTT INR 2.34 (0.83-1.09) H 02/20/19 07:38 Problem List - Problems (1) CHF (congestive heart failure) Assessment/Plan: IV LASIX MONITOR LABS Code(s): I50.9 - HEART FAILURE, UNSPECIFIED Qualifiers: Heart failure type: unspecified Heart failure chronicity: unspecified Qualified Code(s): I50.9 - Heart failure, unspecified (2) Mitral valve stenosis Assessment/Plan: CARDIO ON BOARD WILL NEED CATH AND POSSIBLE MV SURGERY --TRANSFER TO [facility] Code(s): I05.0 - RHEUMATIC MITRAL STENOSIS (3) SOB (shortness of breath) Assessment/Plan: ABOVE Code(s): R06.02 - SHORTNESS OF BREATH (4) CAD (coronary artery disease) Assessment/Plan: Orders 02/19/19 10:00 Aspirin [ASA -] 81 mg PO DAILY Metoprolol Succinate [Toprol Xl -] 25 mg PO DAILY 02/19/19 22:00 Atorvastatin Ca [Lipitor -] 40 mg PO HS Code(s): I25.10 - ATHSCL HEART DISEASE OF [place] CORONARY ARTERY W/O ANG PCTRS (5) COPD (chronic obstructive pulmonary disease) Code(s): J44.9 - CHRONIC OBSTRUCTIVE PULMONARY DISEASE, UNSPECIFIED (6) Anemia Assessment/Plan: W/U ORDERED HEM CONSULT GI CONSULT SPEP/UPEP/IMMUNOFIXATION STOOL NEG OB Code(s): D64.9 - ANEMIA, UNSPECIFIED
[2019-02-20 15:07] VITALS: BP 105/61; PULSE 70; TEMP 98.5
--- NOTE | 2019-02-21 00:16 | EKG ---
Test Reason : Blood Pressure : / mmHG Vent. Rate : 074 BPM Atrial Rate : 074 BPM P-R Int : 182 ms QRS Dur : 074 ms QT Int : 450 ms P-R-T Axes : 058 088 051 degrees QTc Int : 499 ms NORMAL SINUS RHYTHM PROLONGED QT ABNORMAL ECG WHEN COMPARED WITH ECG OF 18-FEB-2019 12:28, NONSPECIFIC T WAVE ABNORMALITY NO LONGER EVIDENT IN INFERIOR LEADS NONSPECIFIC T WAVE ABNORMALITY HAS REPLACED INVERTED T WAVES IN ANTERIOR LEADS Confirmed by MD Marcos, Neil ([id number]) on 02/21/2019 12:15:38 AM Referred By: Hakeem PEARL Confirmed By:Neil Rodríguez MD
--- NOTE | 2019-02-21 00:36 | EKG ---
Test Reason : Blood Pressure : / mmHG Vent. Rate : 072 BPM Atrial Rate : 072 BPM P-R Int : 174 ms QRS Dur : 082 ms QT Int : 476 ms P-R-T Axes : 054 088 023 degrees QTc Int : 521 ms NORMAL SINUS RHYTHM POSSIBLE LEFT ATRIAL ENLARGEMENT PROLONGED QT ABNORMAL ECG WHEN COMPARED WITH ECG OF 21-AUG-2008 17:57, T WAVE INVERSION NOW EVIDENT IN ANTERIOR LEADS Confirmed by MD Marcos, Neil ([id number]) on 02/21/2019 12:36:26 AM Referred By: Confirmed By:Neil Rodríguez MD
== END 2019-02-20 16:43 | disposition short-term general hospital (02) | DRG 142 ==
LOC: JER 12:06 → JERBED 14:59 → J4S 22:10
PROVIDERS: ADMIT Family Medicine; ATTEND Family Medicine
DX: D86.85 Sarcoid myocarditis (principal); I05.0 Rheumatic mitral stenosis; I11.0 Hypertensive heart disease with heart failure; I50.31 Acute diastolic (congestive) heart failure; J44.9 Chronic obstructive pulmonary disease, unspecified; I48.0 Paroxysmal atrial fibrillation; D50.9 Iron deficiency anemia, unspecified; I25.10 Atherosclerotic heart disease of native coronary artery without angina pectoris; Z98.61 Coronary angioplasty status; E11.9 Type 2 diabetes mellitus without complications
CPT/HCPCS: 36415; 71045-TC-FY; 80048; 80053; 82272; 82550; 82607; 82728; 83540; 83550; 83735; 83880; 84100; 84436; 84484; 85025; 85610; 85730; 93005; 93010; 99284-25

== ENCOUNTER 2019-09-27 13:13 | Inpatient (IN) | payer OTHER ==
[2019-09-27 14:15] VITALS: BMI 32.6
[2019-09-27] MEDS ORDERED: SODIUM CHLORIDE 500 ML IV STA ×2 (14:16→17:34)
--- NOTE | 2019-09-27 14:16 | PDOC ---
Rapid Medical Evaluation Time Seen by Provider: 09/27/19 14:13 Medical Evaluation: Allergies Allergy/AdvReac Type Severity Reaction Status Date / Time doxycycline Allergy Verified 02/18/19 18:11 erythromycin base Allergy Verified 02/18/19 18:11 Penicillins Allergy Verified 02/18/19 18:11 tetracycline Allergy Verified 02/18/19 18:11 09/27/19 14:14 Pt c/o: "high glucose " yesterday was 584, not on reg insulin PRN, polyuria, polydypsia, vss Pt on brief exam: vss, lcta Pt ordered for: labs, urine, iv pt to proceed to the ED Discharge Disposition - Diagnosis High glucose - Discharge Dispostion Disposition: VNS/HOME HEALTH CARE Condition at time of disposition: Stable - Referrals - Patient Instructions - Post Discharge Activity
--- NOTE | 2019-09-27 16:21 | PDOC ---
History of Present Illness - General Chief Complaint: Blood Sugar Problem Stated Complaint: HIGH BLOOD SUGAR Time Seen by Provider: 09/27/19 14:13 - History of Present Illness Initial Comments: Ms. Bailey is a pleasant 54 y/o female with PMH significant for DMT2, [place], s/p open heart surgery, COPD, HTN, HLD, carotid stents, presenting today with 4 weeks of high blood sugar, headache, dizziness, nausea w/o vomiting, frequent urination. She has seen her PCP multiple times and was increased to metformin 1000 mg BID and given a trulicity injection. Reports that her blood sugar continues to be > 600 and she is not able to bring it down. Also reports weakness in bilaterallegs and falls x2 yesterday. No chest pain/shortness of breath. No abdominal pain. No dysuria. Reports diarrhea x2 yesterday. Reports that she has been admitted to the ICU for DMT2 before. Diagnosed in 2011. Past History - Past Medical History Allergies/Adverse Reactions: Allergies Allergy/AdvReac Type Severity Reaction Status Date / Time doxycycline Allergy Verified 09/27/19 14:15 erythromycin base Allergy Verified 09/27/19 14:15 Penicillins Allergy Verified 09/27/19 14:15 tetracycline Allergy Verified 09/27/19 14:15 Home Medications: Ambulatory Orders Aspirin [ASA -] 81 mg PO DAILY 02/18/19 Atorvastatin Ca [Lipitor] 80 mg PO HS 02/18/19 Gabapentin 400 mg PO TID 02/18/19 Paroxetine HCl [Paxil -] 10 mg PO DAILY 02/18/19 Warfarin Sodium [Coumadin] 10 mg PO DAILY 02/18/19 Atenolol/Chlorthalidone [Atenolol-Chlorthalidone 100-25] 1 each PO DAILY Dulaglutide [Trulicity] 0.75 mg SQ WEEKLY 09/27/19 Tiotropium Br/Olodaterol HCl [Stiolto Respimat Inhal [place]] 1 puff PO PRN PRN Warfarin Sodium 10 mg PO HS 09/27/19 metFORMIN HCL [Metformin HCl] 1,000 mg PO BID 09/27/19 Anemia: No Cancer: No CVA: No COPD: Yes CHF: Yes Dementia: No Diabetes: Yes HTN: Yes Hypercholesterolemia: Yes Seizures: No - Surgical History Cardiac Surgery: Yes (STENT Placement) - Psycho Social/Smoking Cessation Hx Smoking History: Never smoked Have you smoked in the past 12 months: No Hx Alcohol Use: No Drug/Substance Use Hx: No Review of Systems - Review of Systems Comments:: GENERAL/CONSTITUTIONAL: No fever or chills. Reports generalized weakness. HEAD, EYES, EARS, NOSE AND THROAT: No change in vision. No change in hearing. No sore throat._ CARDIOVASCULAR: No chest pain or shortness of breath_ RESPIRATORY: Denies cough, hemoptysis_ GASTROINTESTINAL: Reports nausea and diarrhea. No vomiting. GENITOURINARY: Reports frequent urination. MUSCULOSKELETAL: No joint or muscle swelling or pain. No neck or back pain._ SKIN: No rash_ NEUROLOGIC: Reports headache. Reports lightheadedness. No vertigo, loss of consciousness, or change in strength/sensation._ ENDOCRINE: Reports increased thirst. No abnormal weight change_ HEMATOLOGIC/LYMPHATIC: No anemia, easy bleeding, or history of blood clots._ ALLERGIC/IMMUNOLOGIC: No hives or skin allergy._ *Physical Exam - Vital Signs Last Vital Signs Temp Pulse Resp BP Pulse Ox 98 F 86 18 127/76 98 09/27/19 14:12 09/27/19 14:12 09/27/19 14:12 09/27/19 14:12 09/27/19 14:12 - Physical Exam GENERAL: Awake, alert, and oriented to person/place/time, in no acute distress_ HEAD: No signs of trauma, normoc ephalic, atraumatic _ EYES: PERRLA, EOMI, sclera anicteric, conjunctiva clear_ ENT: Hearing grossly normal, nares patent, oropharynx clear without exudates. No uvular deviation. Dry mucous membranes. NECK: Normal ROM, supple, no lymphadenopathy, JVD, or masses_ LUNGS: No distress, speaks in full sentences, clear to auscultation bilaterally _ HEART: Regular rate and rhythm, normal S1 and S2, no murmurs appreciated, peripheral pulses normal and equal bilaterally._ ABDOMEN: Soft, nontender, normoactive bowel sounds. No guarding, no rebound. No masses_ EXTREMITIES: Normal inspection, Normal range of motion, no edema. No clubbing or cyanosis_ NEUROLOGICAL: Cranial nerves II through XII grossly intact. Normal speech, normal gait, no focal sensorimotor deficits _ SKIN: Warm, Dry, normal turgor, no rashes or lesions noted_ ED Treatment Course - LABORATORY CBC & Chemistry Diagram: 09/27/19 15:41 09/27/19 19:40 - Medications Given in the ED: ED Medications Discontinued Medications Generic Name Dose Route Start Last Admin Trade Name Nicolasa PRN Reason Stop Dose Admin Sodium Chloride 500 mls @ 250 mls/hr 09/27/19 14:16 09/27/19 15:46 Normal Saline - IV 09/27/19 16:15 250 mls/hr ASDIR STA Administration Medical Decision Making - Medical Decision Making 09/27/19 16:21 [id number] presenting today with high blood sugar for 4 weeks. On metformin 1000 mg BID. -cbc, cmp, lactic -ekg, cxr -beta hydroxybutyrate -mag phos -blood cx, ua, ucx -vbg -fluids 09/27/19 16:36 EKG shows NSR, 81 bpm, no ST elevation, QTc 478. 09/27/19 17:00 Labs reviewed. Laboratory Last Values WBC 7.1 K/mm3 (4.0-10.0) 09/27/19 15:41 RBC 5.76 M/mm3 (3.60-5.2) H 09/27/19 15:41 Hgb 15.3 GM/dL (10.7-15.3) 09/27/19 15:41 Hct 47.1 % (32.4-45.2) H D 09/27/19 15:41 MCV 81.7 fl (80-96) 09/27/19 15:41 MCH 26.5 pg (25.7-33.7) D 09/27/19 15:41 MCHC 32.4 g/dl (32.0-36.0) 09/27/19 15:41 RDW 16.3 % (11.6-15.6) H 09/27/19 15:41 Plt Count 186 K/MM3 (134-434) D 09/27/19 15:41 MPV 11.6 fl (7.5-11.1) H D 09/27/19 15:41 Absolute Neuts (auto) 4.2 K/mm3 (1.5-8.0) 09/27/19 15:41 Neutrophils % 58.5 % (42.8-82.8) D 09/27/19 15:41 Lymphocytes % 31.5 % (8-40) D 09/27/19 15:41 Monocytes % 9.3 % (3.8-10.2) 09/27/19 15:41 Eosinophils % 0.3 % (0-4.5) 09/27/19 15:41 Basophils % 0.4 % (0-2.0) 09/27/19 15:41 Nucleated RBC % 0 % (0-0) 09/27/19 15:41 PTT (Actin FS) 38.4 SECONDS (25.2-36.5) H 09/27/19 19:40 VBG pH 7.38 (7.31-7.41) 09/27/19 15:41 POC VBG pCO2 59.0 mmHg (38-52) H 09/27/19 15:41 POC VBG pO2 < 49 mmHg (28-48) H 09/27/19 15:41 VBG HCO3 34.1 mmol/L (23-29) H 09/27/19 15:41 VBG O2 Sat (Alisa) 33.7 % (70-80) L 09/27/19 15:41 VBG Base Excess 7.1 meq/l (-2-2) H 09/27/19 15:41 Sodium 134 mmol/L (136-145) L 09/27/19 19:40 Potassium 3.9 mmol/L (3.5-5.1) 09/27/19 19:40 Chloride 95 mmol/L (98-107) L 09/27/19 19:40 Carbon Dioxide 31 mmol/L (21-32) 09/27/19 19:40 Anion Gap 9 MMOL/L (8-16) 09/27/19 19:40 BUN 19.5 mg/dL (7-18) H 09/27/19 19:40 Creatinine 1.2 mg/dL (0.55-1.3) 09/27/19 19:40 Est GFR (CKD-EPI)AfAm 59.75 09/27/19 19:40 Est GFR (CKD-EPI)NonAf 51.55 09/27/19 19:40 POC Glucometer 276 UNITS (80-120) 09/27/19 21:31 Random Glucose 277 mg/dL (74-106) H 09/27/19 19:40 Lactic Acid 2.2 mmol/L (0.4-2.0) H* 09/27/19 15:46 Calcium 9.1 mg/dL (8.5-10.1) 09/27/19 19:40 Phosphorus 3.6 mg/dL (2.5-4.9) 09/27/19 15:46 Magnesium 1.9 mg/dL (1.8-2.4) 09/27/19 15:46 Total Bilirubin 1.0 mg/dL (0.2-1) 09/27/19 19:40 AST 41 U/L (15-37) H 09/27/19 19:40 ALT 33 U/L (13-61) 09/27/19 19:40 Alkaline Phosphatase 44 U/L (45-117) L 09/27/19 19:40 B-Natriuretic Peptide 255.3 pg/ml (5-125) H 09/27/19 15:46 Total Protein 6.9 g/dl (6.4-8.2) 09/27/19 19:40 Albumin 3.7 g/dl (3.4-5.0) 09/27/19 19:40 Lipase 124 U/L (73-393) 09/27/19 19:40 Beta-Hydroxybutyrate 10.6 mg/dL (0.2-2.8) H 09/27/19 15:46 Urine Color Yellow 09/27/19 16:48 Urine Appearance Clear 09/27/19 16:48 Urine pH 5.0 (5.0-8.0) 09/27/19 16:48 Ur Specific [place] 1.032 (1.010-1.035) 09/27/19 16:48 Urine Protein Negative (NEGATIVE) 09/27/19 16:48 Urine Glucose (UA) 3+ (NEGATIVE) H 09/27/19 16:48 Urine Ketones Trace (NEGATIVE) H 09/27/19 16:48 Urine Blood Negative (NEGATIVE) 09/27/19 16:48 Urine Nitrite Negative (NEGATIVE) 09/27/19 16:48 Urine Bilirubin Negative (NEGATIVE) 09/27/19 16:48 Urine Urobilinogen 1.0 mg/dL (0.2-1.0) 09/27/19 16:48 Ur Leukocyte Esterase Negative (NEGATIVE) 09/27/19 16:48 09/27/19 19:30 Lactic elevated. Glucose elevated. D/w the hospitalist team who accepts the patient for admission. Discharge - Discharge Information Problems reviewed: Yes Clinical Impression/Diagnosis: High glucose Condition: Stable - Admission Yes - Follow up/Referral - Patient Discharge Instructions - Post Discharge Activity
[2019-09-27 16:48] LABS: VENOUS PH 7.38 (7.31-7.41); VENOUS PO2 < 49 mmHg (28-48)
[2019-09-27 16:50] LABS: BASO % 0.4 % (0-2.0); EOS % 0.3 % (0-4.5); HEMATOCRIT 47.1 % (32.4-45.2); HEMOGLOBIN 15.3 GM/dL (10.7-15.3); LYMPH % 31.5 % (8-40); MCH 26.5 pg (25.7-33.7); MCHC 32.4 g/dl (32.0-36.0); MEAN CELL VOLUME 81.7 fl (80-96); MEAN PLT VOLUME 11.6 fl (7.5-11.1); MONO % 9.3 % (3.8-10.2); NEUT % 58.5 % (42.8-82.8); PLATELET COUNT 186 K/MM3 (134-434); RBC 5.76 M/mm3 (3.60-5.2); RDW 16.3 % (11.6-15.6); WHITE BLOOD COUNT 7.1 K/mm3 (4.0-10.0)
[2019-09-27 17:09] LABS: URINE APPEARANCE CLEAR; URINE BILIRUBIN NEGATIVE (NEGATIVE); URINE COLOR YELLOW; URINE GLUCOSE (UA) 3+ (NEGATIVE); URINE KETONE TRACE (NEGATIVE); URINE LEUK ESTERASE NEGATIVE (NEGATIVE); URINE NITRITE NEGATIVE (NEGATIVE); URINE PROTEIN NEGATIVE (NEGATIVE)
[2019-09-27 17:28] LABS: ALBUMIN 4.2 g/dl (3.4-5.0); ALK PHOS 53 U/L (45-117); ANION GAP 9 MMOL/L (8-16); BILIRUBIN,TOTAL 0.7 mg/dL (0.2-1); BLOOD UREA NITROGEN 22.6 mg/dL (7-18); CALCIUM 9.6 mg/dL (8.5-10.1); CHLORIDE 91 mmol/L (98-107); CO2 32 mmol/L (21-32); CREATININE 1.4 mg/dL (0.55-1.3); GLUCOSE,RANDOM 392 mg/dL (74-106); N-TERMINAL BNP 255.3 pg/ml (5-125); POTASSIUM 3.5 mmol/L (3.5-5.1); SGOT/AST 28 U/L (15-37); SGPT/ALT 36 U/L (13-61); SODIUM 131 mmol/L (136-145); TOT PROT 7.7 g/dl (6.4-8.2)
[2019-09-27 17:45] LABS: MAGNESIUM 1.9 mg/dL (1.8-2.4); PHOSPHOROUS 3.6 mg/dL (2.5-4.9)
--- NOTE | 2019-09-27 20:21 | HP ---
Admitting History and Physical - Primary Care Physician PCP: Celina Jaimes A - Admission Chief Complaint: Elevated Blood Sugars, Dizziness, Headache, Polyuria History of Present Illness: This is a 54 y/o woman with a PMHx of HTN, HLD, CAD, [facility], PCI, T2DM , COPD. Who presents to the ED with elevated blood sugars x 4 weeks, headache, dizziness, nausea, polyuria. Patient reports change in her diabetes regimen. Patient reports having "very high" blood sugars at home. Patient reports eating clean avoiding processed foods, cooking at home. Patient reports having polyuria and polydipsia. Patient reports having falls due to dizziness. Patient denies head injury or LOC. Patient denies fever, chills, cough, SOB, CP, palpitations, AP, vomiting, constipation. History Source: Patient Limitations to Obtaining History: No Limitations - Past Medical History Cardiovascular: Yes: AFIB, CAD, CHF, HTN, Hyperlipdemia, Mitral Stenosis, Murmur Pulmonary: Yes: COPD Heme/Onc: Yes: Anemia (PCI STENT) - Past Surgical History Past Surgical History: Yes: Stent Additional Past Surgical History: Mitral Valve replacement - Smoking History Smoking history: Never smoked Have you smoked in the past 12 months: No - Alcohol/Substance Use Hx Alcohol Use: No History of Substance Use: reports: None - Social History Usual Living Arrangement: Yes: Alone ADL: Independent History of Recent Travel: Yes Home Medications - Allergies Allergies/Adverse Reactions: Allergies Allergy/AdvReac Type Severity Reaction Status Date / Time doxycycline Allergy Verified 09/27/19 14:15 erythromycin base Allergy Verified 09/27/19 14:15 Penicillins Allergy Verified 09/27/19 14:15 tetracycline Allergy Verified 09/27/19 14:15 - Home Medications Home Medications: Ambulatory Orders Aspirin [ASA -] 81 mg PO DAILY 02/18/19 Atorvastatin Ca [Lipitor] 80 mg PO HS 02/18/19 Gabapentin 400 mg PO TID 02/18/19 Paroxetine HCl [Paxil -] 10 mg PO DAILY 02/18/19 Warfarin Sodium [Coumadin] 10 mg PO DAILY 02/18/19 Atenolol/Chlorthalidone [Atenolol-Chlorthalidone 100-25] 1 each PO DAILY Dulaglutide [Trulicity] 0.75 mg SQ WEEKLY 09/27/19 Tiotropium Br/Olodaterol HCl [Stiolto Respimat Inhal [place]] 1 puff PO PRN PRN Warfarin Sodium 10 mg PO HS 09/27/19 metFORMIN HCL [Metformin HCl] 1,000 mg PO BID 09/27/19 Family Medical History Family History: Unable to Obtain Review of Systems - Review of Systems Constitutional: reports: No Symptoms Eyes: reports: No Symptoms HENT: reports: No Symptoms Neck: reports: No Symptoms Cardiovascular: reports: No Symptoms Respiratory: reports: No Symptoms Gastrointestinal: reports: Nausea Genitourinary: reports: Frequency Breasts: reports: No Symptoms Reported Musculoskeletal: reports: No Symptoms Integumentary: reports: No Symptoms Neurological: reports: Dizziness, Headache Endocrine: reports: No Symptoms Hematology/Lymphatic: reports: No Symptoms Psychiatric: reports: No Symptoms Physical Examination Vital Signs: Vital Signs Temperature 98.2 F 09/27/19 15:50 Pulse Rate 84 09/27/19 15:50 Respiratory Rate 18 09/27/19 15:50 Blood Pressure 106/74 09/27/19 15:50 O2 Sat by Pulse Oximetry (%) 100 09/27/19 15:50 Constitutional: Yes: Well Nourished, No Distress, Calm, Obese Eyes: Yes: WNL, Conjunctiva Clear, EOM Intact, PERRL HENT: Yes: WNL, Atraumatic, Normocephalic Neck: Yes: WNL, Supple, Trachea Midline Cardiovascular: Yes: Regular Rate and Rhythm, S1, S2 Respiratory: Yes: WNL, Regular, CTA Bilaterally Gastrointestinal: Yes: WNL, Normal Bowel Sounds, Soft, Abdomen, Obese ...Rectal Exam: Yes: WNL, Deferred Renal/: Yes: WNL Breast(s): Yes: WNL Musculoskeletal: Yes: WNL Extremities: Yes: WNL Edema: No Peripheral Pulses WNL: Yes Integumentary: Yes: WNL Neurological: Yes: WNL, Alert, Oriented, Cran Nerves II-XII Intact ...Motor Strength: WNL Psychiatric: Yes: WNL, Alert, Oriented Labs: CBC, BMP 09/27/19 15:41 Imaging - Results Chest X-ray: Report Reviewed, Image Reviewed EKG: Image Reviewed Problem List - Problems (1) Abnormal EKG Assessment/Plan: Likely secondary to ACS hx PA with stents, open heart EKG- NSR with ST depressions Continue cardiac monitoring Serial Enzymes neg x1 Appreciate Cardiology consult Code(s): R94.31 - ABNORMAL ELECTROCARDIOGRAM [ECG] [EKG] (2) Uncontrolled diabetes mellitus Assessment/Plan: Less likely DKA vs HHS AG 9 BHydroxybutyrate 10.6 Lactic Acid 2.2 likely 2/2 Metformin use UA +3 glucose, trace ketones NS bolus given in ED Continue IVF Appreciate Endocrinology consult ISS HgbA1c in am Hold Metformin secondary to Lactate 2.2 Monitor renal function Code(s): E11.65 - TYPE 2 DIABETES MELLITUS WITH HYPERGLYCEMIA (3) EMMA (acute kidney injury) Assessment/Plan: Likely due to dehydration Continue IVF Monitor BMP Consider Renal consult if condition worsens Monitor vitals Code(s): N17.9 - ACUTE KIDNEY FAILURE, UNSPECIFIED (4) HTN (hypertension) Assessment/Plan: stable Continue atenolol Hold HCTZ secondary to EMMA Monitor BMP Monitor renal function Code(s): I10 - ESSENTIAL (PRIMARY) HYPERTENSION (5) HLD (hyperlipidemia) Assessment/Plan: stable Continue Lipitor Monitor LFTs Code(s): E78.5 - HYPERLIPIDEMIA, UNSPECIFIED (6) Anemia Assessment/Plan: stable Hgb 15.3 Will transfuse if Hgb < 7.0 Monitor CBC Code(s): D64.9 - ANEMIA, UNSPECIFIED (7) CAD (coronary artery disease) Assessment/Plan: Continue home meds EKG- reviewed Chest Xray- no acute pathology Code(s): I25.10 - ATHSCL HEART DISEASE OF [place] CORONARY ARTERY W/O ANG PCTRS (8) Mitral valve stenosis Assessment/Plan: s/p MVR EKG reviewed INR-pending Continue Coumadin,maintain INR (2.5-3.5) Series INRs Code(s): I05.0 - RHEUMATIC MITRAL STENOSIS (9) CHF (congestive heart failure) Assessment/Plan: stable No acute flare Chest xray- no acute pathology Hold HCTZ secondary to EMMA Code(s): I50.9 - HEART FAILURE, UNSPECIFIED Qualifiers: Heart failure type: unspecified Heart failure chronicity: unspecified Qualified Code(s): I50.9 - Heart failure, unspecified (10) COPD (chronic obstructive pulmonary disease) Assessment/Plan: stable No acute flare Albuterol neb prn Continue home med Code(s): J44.9 - CHRONIC OBSTRUCTIVE PULMONARY DISEASE, UNSPECIFIED Assessment/Plan This is a 54 y/o woman with a PMHx of HTN, HLD, CAD, PA s/p mech MVR, s/p PCI, pAfib, T2DM, COPD. Admitted to Telemetry for Abnormal EKG, Dehydration, EMMA for further evaluation of their emergent condition. Plan: See Problem List FEN PO fluids as tolerated Replete lytes prn Low Na, Diabetic Diet DVT ppx OOB SCDs Continue Coumadin (awaiting INR) Dispo: Requires Inpatient Care Visit type - Emergency Visit Emergency Visit: Yes ED Registration Date: 09/27/19 Care time: The patient presented to the Emergency Department on the above date and was hospitalized for further evaluation of their emergent condition. - New Patient This patient is new to me today: Yes Date on this admission: 09/27/19 - Critical Care Critical Care patient: No
[2019-09-27 20:31] LABS: ALBUMIN 3.7 g/dl (3.4-5.0); BLOOD UREA NITROGEN 19.5 mg/dL (7-18); CALCIUM 9.1 mg/dL (8.5-10.1); CREATININE 1.2 mg/dL (0.55-1.3); TOT PROT 6.9 g/dl (6.4-8.2)
[2019-09-27 20:32] LABS: POTASSIUM 3.9 mmol/L (3.5-5.1)
[2019-09-27] MEDS ORDERED: HEPARIN NA (PORCINE) 5,000 UNITS/ML 1ML VIAL SQ SCH (22:00)
[2019-09-27] MEDS ORDERED: HEPARIN NA (PORCINE) 5,000 UNITS/ML 1ML VIAL ONE (22:14)
[2019-09-28] MEDS ORDERED: SODIUM CHLORIDE 1,000 ML IV STA (03:25)
[2019-09-28] MEDS ORDERED: INSULIN (NOVOLOG) ASPART 100 UNITS/ML 10ML VIAL SQ ONE (03:26)
[2019-09-28] MEDS ORDERED: INSULIN (NOVOLOG MIX 70/30) 100 UNITS/ML MDV SQ ONE (03:35)
[2019-09-28] MEDS ORDERED: ALBUTEROL SO4 0.083% IH SOL 2.5 MG/3 ML VIAL.NEB. NEB PRN (04:01)
[2019-09-28] MEDS: SODIUM CHLORIDE 1,000 ML IV SCH ×2 (04:31→22:30)
[2019-09-28] MEDS ORDERED: GABAPENTIN 100 MG CAPSULE ONE (06:41)
[2019-09-28] MEDS: GABAPENTIN 400 MG CAPSULE PO SCH ×3 (06:44→22:04)
[2019-09-28] MEDS: INSULIN SLIDING SCALE (NOVOLOG) 1 VIAL SQ SCH ×4 (07:36→22:05)
[2019-09-28 08:02] LABS: ANION GAP 8 MMOL/L (8-16); BLOOD UREA NITROGEN 16.3 mg/dL (7-18); CALCIUM 8.8 mg/dL (8.5-10.1); CHLORIDE 96 mmol/L (98-107); CO2 31 mmol/L (21-32); CREATININE 1.1 mg/dL (0.55-1.3); GLUCOSE,RANDOM 356 mg/dL (74-106); POTASSIUM 3.2 mmol/L (3.5-5.1); SODIUM 135 mmol/L (136-145)
[2019-09-28 08:16] LABS: BASO % 0.5 % (0-2.0); EOS % 0.7 % (0-4.5); HEMATOCRIT 40.9 % (32.4-45.2); HEMOGLOBIN 13.4 GM/dL (10.7-15.3); LYMPH % 35.4 % (8-40); MCH 26.8 pg (25.7-33.7); MCHC 32.8 g/dl (32.0-36.0); MEAN CELL VOLUME 81.5 fl (80-96); MONO % 10.9 % (3.8-10.2); NEUT % 52.5 % (42.8-82.8); PLATELET COUNT 156 K/MM3 (134-434); RBC 5.02 M/mm3 (3.60-5.2); RDW 16.2 % (11.6-15.6); WHITE BLOOD COUNT 6.4 K/mm3 (4.0-10.0)
[2019-09-28 08:23] LABS: INR 2.04 (0.83-1.09); PROTHROMBIN TIME (PATIENT) 24.3 SEC (9.7-13.0)
--- NOTE | 2019-09-28 08:55 | PN ---
Progress Note, Physician History of Present Illness: 54 y/o woman with a PMHx of HTN, HLD, CAD, [place] s/p open heart sx january 2019 at [facility], stents, T2DM, COPD. Who presents to the ED with elevated blood sugars x 4 weeks, headache, dizziness, nausea, polyuria. Patient reports change in her diabetes regimen. - Current Medication List Current Medications: Active Medications Albuterol Sulfate (Ventolin 0.083% Nebulizer Soln -) 1 amp NEB Q6H PRN PRN Reason: SHORT OF BREATH/WHEEZING Aspirin (Asa -) 81 mg PO DAILY [facility] Atorvastatin Calcium (Lipitor -) 80 mg PO HS [facility] Gabapentin (Neurontin -) 400 mg PO TID [facility] Last Admin: 09/28/19 06:44 Dose: 400 mg Sodium Chloride (Normal Saline -) 1,000 mls @ 100 mls/hr IV ASDIR [facility] Last Admin: 09/28/19 04:31 Dose: 100 mls/hr Insulin Aspart (Novolog Vial Sliding Scale -) 1 vial SQ ACHS [facility]; Protocol Last Admin: 09/28/19 07:36 Dose: 8 units Paroxetine HCl (Paxil -) 10 mg PO DAILY [facility] Tiotropium [place]/Olodaterol (Stiolto Respimat Inhal [place]) 1 puff IH DAILY [facility] - Objective Vital Signs: Vital Signs Temperature 98.2 F 09/27/19 15:50 Pulse Rate 81 09/28/19 04:10 Respiratory Rate 18 09/28/19 04:10 Blood Pressure 110/68 09/28/19 04:10 O2 Sat by Pulse Oximetry (%) 100 09/28/19 04:10 Cardiovascular: Yes: Regular Rate and Rhythm, Murmur Respiratory: Yes: Regular, CTA Bilaterally Gastrointestinal: Yes: Normal Bowel Sounds, Soft. No: Tenderness Edema: No Neurological: Yes: Alert, Oriented Labs: CBC, BMP 09/28/19 06:30 09/28/19 06:30 INR, PTT INR 2.04 (0.83-1.09) H 09/28/19 06:30 Problem List - Problems (1) Abnormal EKG Assessment/Plan: s/p cabg 01/2019 Get previous from [facility] follow labs tele cardiology Code(s): R94.31 - ABNORMAL ELECTROCARDIOGRAM [ECG] [EKG] (2) HLD (hyperlipidemia) Assessment/Plan: lipitor 80 Code(s): E78.5 - HYPERLIPIDEMIA, UNSPECIFIED (3) HTN (hypertension) Assessment/Plan: monitor on meds Code(s): I10 - ESSENTIAL (PRIMARY) HYPERTENSION (4) Uncontrolled diabetes mellitus Assessment/Plan: start insulin ivf endo bgm Code(s): E11.65 - TYPE 2 DIABETES MELLITUS WITH HYPERGLYCEMIA (5) CAD (coronary artery disease) Assessment/Plan: monitor on meds Code(s): I25.10 - ATHSCL HEART DISEASE OF [place] CORONARY ARTERY W/O ANG PCTRS
[2019-09-28] MEDS ORDERED: KCL 10 MEQ IVPB 10 MEQ/100 ML INFUS.BAG IVPB ONE (10:04)
[2019-09-28] MEDS: ASPIRIN 81 MG CHEWABLE TABLETS PO SCH (10:16)
[2019-09-28] MEDS: KCL 10 MEQ IVPB 10 MEQ/100 ML INFUS.BAG IVPB SCH ×2 (10:16→10:52)
[2019-09-28] MEDS: TIOTROPIUM/OLODATEROL HCL (STIOLTO) 4 GM INHALER IH SCH (10:17)
[2019-09-28] MEDS: ATENOLOL 50 MG TABLET (FP) PO SCH (10:17)
[2019-09-28] MEDS: PARoxetine HCL 10 MG TABLET PO SCH (10:17)
[2019-09-28] MEDS ORDERED: INSULIN (LEVEMIR) 100 UNITS/ML UNITS SQ ONE (10:20)
[2019-09-28] MEDS: INSULIN (LEVEMIR) 100 UNITS/ML UNITS SQ SCH ×2 (10:26→22:11)
--- NOTE | 2019-09-28 11:38 | EKG ---
Test Reason : Blood Pressure : / mmHG Vent. Rate : 081 BPM Atrial Rate : 081 BPM P-R Int : 178 ms QRS Dur : 078 ms QT Int : 412 ms P-R-T Axes : 068 088 242 degrees QTc Int : 478 ms NORMAL SINUS RHYTHM LEFT ATRIAL ENLARGEMENT T WAVE ABNORMALITY, CONSIDER INFERIOR ISCHEMIA T WAVE ABNORMALITY, CONSIDER ANTEROLATERAL ISCHEMIA PROLONGED QT ABNORMAL ECG WHEN COMPARED WITH ECG OF 20-FEB-2019 09:13, T WAVE INVERSION NOW EVIDENT IN INFERIOR LEADS T WAVE INVERSION NOW EVIDENT IN ANTEROLATERAL LEADS Confirmed by Campbell Chan MD ([id number]) on 09/28/2019 11:38:31 AM Referred By: Confirmed By:Campbell Chan MD
[2019-09-28] MEDS ORDERED: INSULIN (NOVOLOG) ASPART 100 UNITS/ML 10ML VIAL ONE (11:59)
--- NOTE | 2019-09-28 11:59 | CON.CARD ---
Cardiology Consult (text) - Consultation Consultation Note: cc: hyperglycemia hpi: 54 f hx htn, hld, dchf, copd, cad s/p pci 2016, pafib, dm, mitral stenosis s/p mechanical AVR 2019 p/w hyperglycemia for last 4 weeks. Often >600 , feels tired, dizzy, headahces. No chest pain, palps, dizziness, dyspnea. pmh: per hpi psh: pci, s/p mech MVR social: no tob fam: no premature cad, scd ros: per hpi; all others normal meds: Current Medications Albuterol Sulfate (Ventolin 0.083% Nebulizer Soln -) 1 amp NEB Q6H PRN PRN Reason: SHORT OF BREATH/WHEEZING Aspirin (Asa -) 81 mg PO DAILY [facility] Last Admin: 09/28/19 10:16 Dose: 81 mg Atenolol (Tenormin -) 100 mg PO DAILY [facility] Last Admin: 09/28/19 10:17 Dose: 100 mg Atorvastatin Calcium (Lipitor -) 80 mg PO [facility] Gabapentin (Neurontin -) 400 mg PO TID [facility] Last Admin: 09/28/19 06:44 Dose: 400 mg Sodium Chloride (Normal Saline -) 1,000 mls @ 100 mls/hr IV ASDIR [facility] Last Admin: 09/28/19 04:31 Dose: 100 mls/hr Insulin Aspart (Novolog Vial Sliding Scale -) 1 vial SQ ACHS [facility]; Protocol Last Admin: 09/28/19 07:36 Dose: 8 units Insulin Detemir (Levemir Vial) 20 units SQ BID@0700,2200 [facility] Last Admin: 09/28/19 10:26 Dose: 20 units Paroxetine HCl (Paxil -) 10 mg PO DAILY [facility] Last Admin: 09/28/19 10:17 Dose: 10 mg Tiotropium [place]/Olodaterol (Stiolto Respimat Inhal [place]) 1 puff IH DAILY [facility] Last Admin: 09/28/19 10:17 Dose: Not Given Warfarin Sodium (Coumadin -) 10 mg PO DAILY@1800 [facility] pe: Vital Signs Period Temp Pulse Resp BP Sys/Grey Pulse Ox Last 24 Hr 97.9 F-98.2 F 80-86 18-20 106-127/68-76 98-100 nad no jvd rrr s1s2 no mrg scattered rhonchi, nl eff aaox3 no le e/c/c abd nt nd pos bs no jaundice diaphoresis pos dp pt no carotid bruits Laboratory Last Values WBC 6.4 K/mm3 (4.0-10.0) 09/28/19 06:30 RBC 5.02 M/mm3 (3.60-5.2) 09/28/19 06:30 Hgb 13.4 GM/dL (10.7-15.3) 09/28/19 06:30 Hct 40.9 % (32.4-45.2) 09/28/19 06:30 MCV 81.5 fl (80-96) 09/28/19 06:30 MCH 26.8 pg (25.7-33.7) 09/28/19 06:30 MCHC 32.8 g/dl (32.0-36.0) 09/28/19 06:30 RDW 16.2 % (11.6-15.6) H 09/28/19 06:30 Plt Count 156 K/MM3 (134-434) 09/28/19 06:30 MPV 11.0 fl (7.5-11.1) 09/28/19 06:30 Absolute Neuts (auto) 3.3 K/mm3 (1.5-8.0) 09/28/19 06:30 Neutrophils % 52.5 % (42.8-82.8) 09/28/19 06:30 Lymphocytes % 35.4 % (8-40) 09/28/19 06:30 Monocytes % 10.9 % (3.8-10.2) H 09/28/19 06:30 Eosinophils % 0.7 % (0-4.5) D 09/28/19 06:30 Basophils % 0.5 % (0-2.0) 09/28/19 06:30 Nucleated RBC % 0 % (0-0) 09/28/19 06:30 PT with INR 24.30 SEC (9.7-13.0) H 09/28/19 06:30 INR 2.04 (0.83-1.09) H 09/28/19 06:30 PTT (Actin FS) 38.4 SECONDS (25.2-36.5) H 09/27/19 19:40 VBG pH 7.38 (7.31-7.41) 09/27/19 15:41 POC VBG pCO2 59.0 mmHg (38-52) H 09/27/19 15:41 POC VBG pO2 < 49 mmHg (28-48) H 09/27/19 15:41 VBG HCO3 34.1 mmol/L (23-29) H 09/27/19 15:41 VBG O2 Sat ([place]) 33.7 % (70-80) L 09/27/19 15:41 VBG Base Excess 7.1 meq/l (-2-2) H 09/27/19 15:41 Sodium 135 mmol/L (136-145) L 09/28/19 06:30 Potassium 3.2 mmol/L (3.5-5.1) L 09/28/19 06:30 Chloride 96 mmol/L (98-107) L 09/28/19 06:30 Carbon Dioxide 31 mmol/L (21-32) 09/28/19 06:30 Anion Gap 8 MMOL/L (8-16) 09/28/19 06:30 BUN 16.3 mg/dL (7-18) 09/28/19 06:30 Creatinine 1.1 mg/dL (0.55-1.3) 09/28/19 06:30 Est GFR (CKD-EPI)AfAm 66.38 09/28/19 06:30 Est GFR (CKD-EPI)NonAf 57.27 09/28/19 06:30 POC Glucometer 277 UNITS (80-120) 09/28/19 11:26 Random Glucose 356 mg/dL (74-106) H 09/28/19 06:30 Lactic Acid 2.2 mmol/L (0.4-2.0) H* 09/27/19 15:46 Calcium 8.8 mg/dL (8.5-10.1) 09/28/19 06:30 Phosphorus 3.6 mg/dL (2.5-4.9) 09/27/19 15:46 Magnesium 1.9 mg/dL (1.8-2.4) 09/27/19 15:46 Total Bilirubin 1.0 mg/dL (0.2-1) 09/27/19 19:40 AST 41 U/L (15-37) H 09/27/19 19:40 ALT 33 U/L (13-61) 09/27/19 19:40 Alkaline Phosphatase 44 U/L (45-117) L 09/27/19 19:40 Troponin I < 0.02 ng/ml (0.00-0.05) 09/27/19 15:46 B-Natriuretic Peptide 255.3 pg/ml (5-125) H 09/27/19 15:46 Total Protein 6.9 g/dl (6.4-8.2) 09/27/19 19:40 Albumin 3.7 g/dl (3.4-5.0) 09/27/19 19:40 Lipase 124 U/L (73-393) 09/27/19 19:40 Beta-Hydroxybutyrate 10.6 mg/dL (0.2-2.8) H 09/27/19 15:46 Urine Color Yellow 09/27/19 16:48 Urine Appearance Clear 09/27/19 16:48 Urine pH 5.0 (5.0-8.0) 09/27/19 16:48 Ur Specific [place] 1.032 (1.010-1.035) 09/27/19 16:48 Urine Protein Negative (NEGATIVE) 09/27/19 16:48 Urine Glucose (UA) 3+ (NEGATIVE) H 09/27/19 16:48 Urine Ketones Trace (NEGATIVE) H 09/27/19 16:48 Urine Blood Negative (NEGATIVE) 09/27/19 16:48 Urine Nitrite Negative (NEGATIVE) 09/27/19 16:48 Urine Bilirubin Negative (NEGATIVE) 09/27/19 16:48 Urine Urobilinogen 1.0 mg/dL (0.2-1.0) 09/27/19 16:48 Ur Leukocyte Esterase Negative (NEGATIVE) 09/27/19 16:48 ecg: sr, inferior and anterolateral ST depressions new compared to prior cxr: no acute process tele: sinus a/p: 54 f hx htn, hld, dchf, copd, cad s/p pci 2015, pafib, dm, mitral stenosis here with hyperglycemia x4 weeks, abnormal EKG DM, hyperglycemia - manage per primary, [facility], hx [facility] - [facility] - cont warfarin, goal INR 2.5-3.5 abnormal EKG - ST depressions new compared to prior - denies anginal symptoms - trop neg x 1, repeat trop ordered - monitoring on tele - check echo htn: -cont home meds cad s/p pci: -cont ac plus aspirin per Dr. Yanez prior treatment plan pafib: - cont warfarin
[2019-09-28] MEDS ORDERED: WARFARIN NA 5 MG TABLET (UD) ONE (17:24)
[2019-09-28] MEDS ORDERED: POTASSIUM CHLORIDE TABS 20 MEQ TABLET.ER (FP) PO ONE ×2 (17:24→17:29)
[2019-09-28] MEDS ORDERED: POTASSIUM CHLORIDE TABS 10 MEQ TABLET.ER (FP) ONE (17:35)
--- NOTE | 2019-09-28 17:45 | PDOC ---
Documentation entered by Anthony Acosta SCRIBE, acting as scribe for Tera Ba MD. Tera Ba MD: This documentation has been prepared by the Dave rome Daniel, SCRIBE, under my direction and personally reviewed by me in its entirety. I confirm that the documentation accurately reflects all work, treatment, procedures, and medical decision making performed by me. Attending Attestation - Resident Resident Name: MarshallCampbell - ED Attending Attestation I have performed the following: I have examined & evaluated the patient, The case was reviewed & discussed with the resident, I agree w/resident's findings & plan, Exceptions are as noted - HPI HPI: 09/27/19 16:21 The patient is a 54 year old female with a past medical history of HTN, HLD, diabetes, CHF, CAD, afib (warfarin), CO, PCI (03/11), COPD, MVR 01/2019 here today for evaluation of elevated glucose. The patient reports that her blood sugar was in the high 500s today. She states that she has been generally weak for the past 2 days with multiple loose watery stools, nausea, and a sour taste in her mouth. She also reports that she has been admitted to the ICU before for diabetic complications. Patient denies headache, lightheadedness. Denies fever, chills. Denies chest pain, shortness of breath. Denies vomiting, abdominal pain. Allergies: doxycycline, erythromycin base, penicillins, tetracycline PCP: Celina Jaimes - Physicial Exam PE: 09/27/19 16:21 Agree with resident exam - Medical Decision Making 54yo F with MMP including Afib, MVR, DM presents to the ED with elevated blood sugars, generalized weakness, diarrhea Found to have non AG hyperglycemia as well as diffuse new ST depressions on EKG Pt with no chest pain but in light of DM, generalized weakness could be anginal equivalent Pt admitted for glycemic control and cardiac evaluation
[2019-09-28] MEDS ORDERED: WARFARIN NA 10 MG TABLET (FP) PO SCH (18:00)
[2019-09-28] MEDS: ATORVASTATIN CA 40 MG TABLET (FP) PO SCH (22:04)
[2019-09-29] MEDS ORDERED: SODIUM CHLORIDE 500 ML IV STA (01:09)
[2019-09-29] MEDS: SODIUM CHLORIDE 1,000 ML IV SCH ×2 (03:30→21:15)
[2019-09-29] MEDS: INSULIN SLIDING SCALE (NOVOLOG) 1 VIAL SQ SCH ×4 (06:24→21:09)
[2019-09-29] MEDS: GABAPENTIN 400 MG CAPSULE PO SCH ×3 (06:24→21:07)
[2019-09-29] MEDS: INSULIN (LEVEMIR) 100 UNITS/ML UNITS SQ SCH ×2 (06:27→21:09)
[2019-09-29 07:24] LABS: INR 3.41 (0.83-1.09); PROTHROMBIN TIME (PATIENT) 40.7 SEC (9.7-13.0)
[2019-09-29] MEDS ORDERED: PT OWN MED DRAWER 7, Y5N ONE (09:34)
[2019-09-29] MEDS: ATENOLOL 50 MG TABLET (FP) PO SCH (09:55)
[2019-09-29] MEDS: ASPIRIN 81 MG CHEWABLE TABLETS PO SCH (10:15)
[2019-09-29] MEDS: PARoxetine HCL 10 MG TABLET PO SCH (10:15)
[2019-09-29] MEDS: TIOTROPIUM/OLODATEROL HCL (STIOLTO) 4 GM INHALER IH SCH (10:16)
[2019-09-29 10:21] LABS: HEMATOCRIT 41.7 % (32.4-45.2); HEMOGLOBIN 13.5 GM/dL (10.7-15.3); MCH 26.6 pg (25.7-33.7); MCHC 32.4 g/dl (32.0-36.0); MEAN CELL VOLUME 82.2 fl (80-96); MEAN PLT VOLUME 11.6 fl (7.5-11.1); PLATELET COUNT 156 K/MM3 (134-434); RBC 5.07 M/mm3 (3.60-5.2); RDW 16.3 % (11.6-15.6); WHITE BLOOD COUNT 5.3 K/mm3 (4.0-10.0)
[2019-09-29 10:41] LABS: ALBUMIN 3.1 g/dl (3.4-5.0); BILIRUBIN,TOTAL 0.5 mg/dL (0.2-1); BLOOD UREA NITROGEN 12.1 mg/dL (7-18); CALCIUM 8.8 mg/dL (8.5-10.1); CREATININE 0.8 mg/dL (0.55-1.3); POTASSIUM 3.3 mmol/L (3.5-5.1)
--- NOTE | 2019-09-29 11:43 | PN ---
Progress Note, Physician Chief Complaint: AWAKE ALERT EVENTS REVIEWED - Current Medication List Current Medications: Active Medications Albuterol Sulfate (Ventolin 0.083% Nebulizer Soln -) 1 amp NEB Q6H PRN PRN Reason: SHORT OF BREATH/WHEEZING Aspirin (Asa -) 81 mg PO DAILY [facility] Last Admin: 09/29/19 10:15 Dose: 81 mg Atenolol (Tenormin -) 100 mg PO DAILY [facility] Last Admin: 09/29/19 09:55 Dose: Not Given Atorvastatin Calcium (Lipitor -) 80 mg PO HS [facility] Last Admin: 09/28/19 22:04 Dose: 80 mg Gabapentin (Neurontin -) 400 mg PO TID [facility] Last Admin: 09/29/19 06:24 Dose: 400 mg Sodium Chloride (Normal Saline -) 1,000 mls @ 100 mls/hr IV ASDIR [facility] Last Admin: 09/29/19 03:30 Dose: Not Given Insulin Aspart (Novolog Vial Sliding Scale -) 1 vial SQ ACHS [facility]; Protocol Last Admin: 09/29/19 06:24 Dose: Not Given Insulin Detemir (Levemir Vial) 20 units SQ BID@0700,2200 [facility] Last Admin: 09/29/19 06:27 Dose: 20 units Paroxetine HCl (Paxil -) 10 mg PO DAILY [facility] Last Admin: 09/29/19 10:15 Dose: 10 mg Potassium Chloride (K-Dur -) 20 meq PO ONCE ONE Stop: 09/29/19 11:39 Tiotropium [place]/Olodaterol (Stiolto Respimat Inhal [place]) 1 puff IH DAILY [facility] Last Admin: 09/29/19 10:16 Dose: 1 puff Warfarin Sodium (Coumadin -) 10 mg PO DAILY@1800 [facility] Last Admin: 09/28/19 17:28 Dose: 10 mg - Objective Vital Signs: Vital Signs Temperature 97.9 F 09/29/19 09:50 Pulse Rate 74 09/29/19 09:50 Respiratory Rate 18 09/29/19 09:50 Blood Pressure 108/71 09/29/19 09:50 O2 Sat by Pulse Oximetry (%) 98 09/28/19 21:00 Constitutional: Yes: Mild Distress Cardiovascular: Yes: Regular Rate and Rhythm, Murmur Respiratory: Yes: CTA Bilaterally Gastrointestinal: Yes: Soft, Abdomen, Obese Genitourinary: Yes: WNL Musculoskeletal: Yes: WNL Extremities: Yes: WNL Edema: Yes Edema: LLE: Trace, RLE: Trace Neurological: Yes: WNL Labs: CBC, BMP 09/29/19 06:08 09/29/19 06:08 INR, PTT INR 3.41 (0.83-1.09) H 09/29/19 06:15 Problem List - Problems (1) EMMA (acute kidney injury) Code(s): N17.9 - ACUTE KIDNEY FAILURE, UNSPECIFIED (2) Abnormal EKG Code(s): R94.31 - ABNORMAL ELECTROCARDIOGRAM [ECG] [EKG] (3) HLD (hyperlipidemia) Code(s): E78.5 - HYPERLIPIDEMIA, UNSPECIFIED (4) HTN (hypertension) Code(s): I10 - ESSENTIAL (PRIMARY) HYPERTENSION (5) High glucose Code(s): R73.09 - OTHER ABNORMAL GLUCOSE (6) Uncontrolled diabetes mellitus Code(s): E11.65 - TYPE 2 DIABETES MELLITUS WITH HYPERGLYCEMIA (7) Anemia Code(s): D64.9 - ANEMIA, UNSPECIFIED (8) CAD (coronary artery disease) Code(s): I25.10 - ATHSCL HEART DISEASE OF [place] CORONARY ARTERY W/O ANG PCTRS (9) COPD (chronic obstructive pulmonary disease) Code(s): J44.9 - CHRONIC OBSTRUCTIVE PULMONARY DISEASE, UNSPECIFIED (10) Mitral valve stenosis Code(s): I05.0 - RHEUMATIC MITRAL STENOSIS Assessment/Plan DIABETES CONTROL DR SAL ENDOCRINE CONSULT CAD WORKUP, ECHO SCHEDULED FOR TODAY SEES A EDUCATION COORDINATOR AT [facility] I SPOKE WITH DR JACOBO AND CANCELED HER CONSULT AND ASKED DR MCKENZIE TO SEE THE PATIENT WHO COVERS [facility] PATIENTS. [facility] REPLETE KCL OOB TO CHAIR HOLD COUMADIN TODAY INR SUPRATHERAPEUTIC
[2019-09-29] MEDS ORDERED: POTASSIUM CHLORIDE TABS 20 MEQ TABLET.ER (FP) PO ONE (11:45)
[2019-09-29] MEDS ORDERED: SODIUM CHLORIDE 250 ML IV STA (13:41)
--- NOTE | 2019-09-29 14:51 | CON.CARD ---
Consult Consult Specialty:: Cardiology Referred by:: Soledad Reason for Consultation:: MVR, abnormal ECG - History of Present Illness Chief Complaint: hyperglycemia History of Present Illness: 54 f hx htn, hld, dchf, copd, cad s/p pci 2015, dm, mitral stenosis s/p mechanical MVR 03/15/19 with cryomaze, CHERYL ablation on coumadin, PAF s/p PVI 05/26 p/w hyperglycemia for last 4 weeks. Found with an abnormal ECG without symptoms. No chest pain, sob, orthopnea, PND or edema. cath 02/22/19 non obstructive CAD echo at [facility] 06/11 nlef normal [facility] MV Echo 09/29/19 normal EF, normal [facility] MV - History Source History Provided By: Patient, Medical Record - Past Medical History Cardio/Vascular: Yes: AFIB, CAD, CHF, HTN, Hyperlipdemia, Mitral Stenosis, Murmur Pulmonary: Yes: COPD - Past Surgical History Past Surgical History: Yes: Stent - Alcohol/Substance Use Hx Alcohol Use: No History of Substance Use: reports: None - Smoking History Smoking history: Never smoked Have you smoked in the past 12 months: No - Social History ADL: Independent History of Recent Travel: Yes Home Medications - Allergies Allergies/Adverse Reactions: Allergies Allergy/AdvReac Type Severity Reaction Status Date / Time doxycycline Allergy Verified 09/27/19 14:15 erythromycin base Allergy Verified 09/27/19 14:15 Penicillins Allergy Verified 09/27/19 14:15 tetracycline Allergy Verified 09/27/19 14:15 - Home Medications Home Medications: Ambulatory Orders Aspirin [ASA -] 81 mg PO DAILY 02/18/19 Atorvastatin Ca [Lipitor] 80 mg PO HS 02/18/19 Gabapentin 400 mg PO TID 02/18/19 Paroxetine HCl [Paxil -] 10 mg PO DAILY 02/18/19 Warfarin Sodium [Coumadin] 10 mg PO DAILY 02/18/19 Atenolol/Chlorthalidone [Atenolol-Chlorthalidone 100-25] 1 each PO DAILY Dulaglutide [Trulicity] 0.75 mg SQ WEEKLY 09/27/19 Tiotropium Br/Olodaterol HCl [Stiolto Respimat Inhal [place]] 1 puff PO PRN PRN Warfarin Sodium 10 mg PO HS 09/27/19 metFORMIN HCL [Metformin HCl] 1,000 mg PO BID 09/27/19 Vital Signs: Vital Signs Temperature 97.9 F 09/29/19 09:50 Pulse Rate 74 09/29/19 09:50 Respiratory Rate 18 09/29/19 09:50 Blood Pressure 108/71 09/29/19 09:50 O2 Sat by Pulse Oximetry (%) 98 09/29/19 09:00 - Other Data Labs, Other Data: CBC, BMP 09/29/19 06:08 09/29/19 06:08 INR, PTT INR 3.41 (0.83-1.09) H 09/29/19 06:15 Imaging - Results Chest X-ray: Report Reviewed EKG: Report Reviewed (nsr lvh repol) Assessment/Plan 54 f hx htn, hld, dchf, copd, cad s/p pci 2015, dm, mitral stenosis s/p mechanical MVR 03/15/19 with cryomaze, CHERYL ablation on coumadin, PAF s/p PVI 05/26 p/w hyperglycemia for last 4 weeks. Found with an abnormal ECG without symptoms. No chest pain, sob, orthopnea, PND or edema. cath 02/22/19 non obstructive CAD echo at [facility] 06/11 nlef normal [facility] MV MVR -continue AC for INR 2.5-3.5 PAF -stable in NSR at present s/p PVI 05/26/19. -her blood pressure has been borderline. Hold atenolol for now. Likely due to her glycemic status. Abnormal ECG -no symptoms c/w ACS or CAD at present. -non obstructive CAD by cath 2018. No testing is needed. -dc telemetry. call us with questions.
--- NOTE | 2019-09-29 15:00 | ECHO ---
Name: HIEU MCFARLANE Exam:Adult Echocardiogram Study Date: 09/29/2019 10:45 AM Age: 54 yrs Reason For Study: ST Depression Height: 69 in Weight: 221 lb BSA: 2.2 m2 MMode/2D Measurements & Calculations IVSd: 0.95 cm Ao root diam: 2.4 cm LVIDd: 4.1 cm LA dimension: 3.3 cm LVIDs: 2.8 cm ACS: 1.5 cm LVPWd: 0.89 cm EDV(Teich): 75.3 ml LVOT diam: 1.6 cm ESV(Teich): 29.3 ml LAV (MOD-bp): 103.0 ml TAPSE: 1.7 cm RV S Austyn: 11.7 cm/sec Doppler Measurements & Calculations MV E max austyn: 143.0 cm/sec MVA(VTI): 1.0 cm2 MV A max austyn: 46.7 cm/sec MV V2 max: 127.9 cm/sec MV E/A: 3.1 MV max P.6 mmHg MV dec time: 0.18 sec MV V2 mean: 65.2 cm/sec MV mean P.1 mmHg MV V2 VTI: 27.3 cm Ao V2 max: 125.5 cm/sec LV V1 max P.6 mmHg Ao max P.3 mmHg LV V1 mean P.88 mmHg Ao V2 mean: 85.9 cm/sec LV V1 max: 62.9 cm/sec Ao mean P.3 mmHg LV V1 mean: 44.7 cm/sec Ao V2 VTI: 28.1 cm LV V1 VTI: 13.2 cm SANJIV(I,D): 0.98 cm2 SANJIV(V,D): 1.1 cm2 SV(LVOT): 27.7 ml TR max austyn: 233.0 cm/sec TR max P.9 mmHg PA V2 max: 67.9 cm/sec Med Peak E' Austyn: 7.8 cm/sec PA max P.8 mmHg Med E/e': 18.3 PA acc time: 0.15 sec Lat Peak E' Aust[place]: 7.4 cm/sec Lat E/e': 19.3 PA pr(Accel): 10.9 mmHg Procedure A complete two-dimensional transthoracic echocardiogram was performed (2D, M-mode, Doppler and color flow Doppler). Left Ventricle The left ventricular size, thickness and function are normal. The left ventricular ejection fraction is normal. Ejection Fraction = 55-60%. The left ventricular wall motion is normal. Right Ventricle The right ventricle is normal in size and function. Atria Normal left and right atrial size and function. Mitral Valve There is a mechanical mitral valve. The prosthetic mitral valve appears to open well. There is no kelvin ral regurgitation noted. Tricuspid Valve There is trace tricuspid regurgitation. Right ventricular systolic pressure is normal. Aortic Valve No hemodynamically significant valvular aortic stenosis. No aortic regurgitation is present. Pulmonic Valve There is no pulmonic valvular regurgitation. Great Vessels The aortic root is normal size. Pericardium/Pleura There is no pericardial effusion. Interpretation Summary The left ventricular size, thickness and function are normal The right ventricle is normal in size and function. There is a mechanical mitral valve. There is trace tricuspid regurgitation. MD Osvaldo Aceves 09/29/2019 03:00 PM
--- NOTE | 2019-09-29 18:21 | PN ---
Progress Note (short form) - Note Progress Note: ID CONSULT DICTATED UNCONTROLLED DM LACTIC ACIDOSIS S/P MVR NO CLEAR INFECTIOUS FOCUS CULTURES NEGATIVE OBSERVE OFF ANTIBIOTICS
--- NOTE | 2019-09-29 18:44 | CONS ---
DATE OF CONSULTATION: DATE OF DICTATION: 09/29/2019 The patient is a 54-year-old diabetic female, evaluated for lactic acidosis. She presented to the hospital with a 2-day history of worsening generalized weakness, nausea, and loose bowel movements, headache, and dizziness. She reports having uncontrolled blood sugars for the past several weeks. She was found on admission to have an elevated blood sugar and EKG changes. She was placed on telemetry. The patient has a complicated cardiac history with mitral valve replacement in February of 2019, left atrial appendage ablation. Her course was complicated by elevated lactic acid at 2.2. She is awake and alert. She has remained afebrile with a normal white blood cell count. She has no focal complaints. She denies any chest pain, shortness of breath, cough, or sputum production. No recurrent diarrhea. No dysuria or hematuria. No infected foot ulcers. PAST MEDICAL HISTORY: Positive for hypertension and hyperlipidemia, diabetes mellitus, congestive heart failure, coronary artery disease, atrial fibrillation, COPD. PAST SURGICAL HISTORY: Status post mitral valve replacement. ALLERGIES: DOXYCYCLINE, ERYTHROMYCIN, PENICILLIN, AND TETRACYCLINE. LABORATORY DATA: White count 5.3, hematocrit 41.7, platelet count 156, creatinine 0.8, liver enzymes are normal. Chest x-ray is negative. Urine leukocyte esterase is negative. Blood cultures and urine cultures are negative. PHYSICAL EXAMINATION: General: She is out of bed to chair. She is not acutely toxic appearing. Vital Signs: Temperature 98.1, blood pressure 108/70, pulse 73 and regular, respirations 18 per minute. HEENT: Sclerae anicteric. Neck: Supple. Heart: Sounds S1, S2. Lungs: Clear. Abdomen: Soft, nontender. Extremities: Negative for edema. IMPRESSION: 1. Uncontrolled diabetes mellitus. 2. Lactic acidosis. 3. Status post mitral valve replacement. PLAN: No clear infectious focus. Cultures are negative. Patient is afebrile with a normal white blood cell count. I advised observation off of antibiotic therapy. Thank you for the kind referral. TONIO FELIX M.D. CYNTHIA/[id number]
[2019-09-29] MEDS: ATORVASTATIN CA 40 MG TABLET (FP) PO SCH (21:07)
--- NOTE | 2019-09-29 21:55 | CONSULT ---
Consult Consult Specialty:: endocrine Referred by:: hi borden NP Reason for Consultation:: dmt2 uncontrolled - History of Present Illness Chief Complaint: weakness nausea History of Present Illness: 54 y/o woman with a PMHx of DM T2,HTN, HLD, CAD, [facility], PCI, COPD. Who presented with elevated blood sugars , headache, dizziness, nausea, polyuria. she has had very high blood sugars at home. Patient reports eating clean avoiding processed foods, cooking at home. Patient reports having polyuria and polydipsia. Patient denies head injury or LOC. Patient denies fever, chills, cough, SOB, CP, palpitations, - Past Medical History Cardio/Vascular: Yes: AFIB, CAD, CHF, HTN, Hyperlipdemia, Mitral Stenosis, Murmur Pulmonary: Yes: COPD - Past Surgical History Past Surgical History: Yes: Stent - Alcohol/Substance Use Hx Alcohol Use: No History of Substance Use: reports: None - Smoking History Smoking history: Never smoked Have you smoked in the past 12 months: No - Social History ADL: Independent History of Recent Travel: Yes Home Medications - Allergies Allergies/Adverse Reactions: Allergies Allergy/AdvReac Type Severity Reaction Status Date / Time doxycycline Allergy Verified 09/27/19 14:15 erythromycin base Allergy Verified 09/27/19 14:15 Penicillins Allergy Verified 09/27/19 14:15 tetracycline Allergy Verified 09/27/19 14:15 - Home Medications Home Medications: Ambulatory Orders Aspirin [ASA -] 81 mg PO DAILY 02/18/19 Atorvastatin Ca [Lipitor] 80 mg PO HS 02/18/19 Gabapentin 400 mg PO TID 02/18/19 Paroxetine HCl [Paxil -] 10 mg PO DAILY 02/18/19 Warfarin Sodium [Coumadin] 10 mg PO DAILY 02/18/19 Atenolol/Chlorthalidone [Atenolol-Chlorthalidone 100-25] 1 each PO DAILY Dulaglutide [Trulicity] 0.75 mg SQ WEEKLY 09/27/19 Tiotropium Br/Olodaterol HCl [Stiolto Respimat Inhal [place]] 1 puff PO PRN PRN Warfarin Sodium 10 mg PO HS 09/27/19 metFORMIN HCL [Metformin HCl] 1,000 mg PO BID 09/27/19 Review of Systems - Review of Systems Constitutional: reports: Lethargy Eyes: reports: Blurred Vision HENT: reports: No Symptoms Neck: reports: No Symptoms Cardiovascular: reports: No Symptoms Respiratory: reports: No Symptoms Gastrointestinal: reports: Constipation, Nausea Genitourinary: reports: No Symptoms Musculoskeletal: reports: Muscle Pain, Muscle Cramps, Muscle Weakness Integumentary: reports: No Symptoms Neurological: reports: Numbness Endocrine: reports: Unexplained Weight Loss Physical Exam Vital Signs: Vital Signs Temperature 97.7 F 09/29/19 18:00 Pulse Rate 73 09/29/19 18:00 Respiratory Rate 20 09/29/19 18:00 Blood Pressure 108/70 09/29/19 18:00 O2 Sat by Pulse Oximetry (%) 99 09/29/19 20:41 Constitutional: Yes: Calm Eyes: Yes: EOM Intact HENT: Yes: Normocephalic Neck: Yes: Trachea Midline Respiratory: Yes: CTA Bilaterally Gastrointestinal: Yes: Normal Bowel Sounds ...Rectal Exam: Yes: Deferred Renal/: Yes: WNL Musculoskeletal: Yes: WNL, Muscle Pain, Muscle Weakness Extremities: Yes: WNL Neurological: Yes: Alert, Oriented Labs: CBC, BMP 09/29/19 06:08 09/29/19 06:08 Problem List - Problems (1) EMMA (acute kidney injury) Problems reviewed: Yes Code(s): N17.9 - ACUTE KIDNEY FAILURE, UNSPECIFIED (2) Abnormal EKG Code(s): R94.31 - ABNORMAL ELECTROCARDIOGRAM [ECG] [EKG] (3) HLD (hyperlipidemia) Code(s): E78.5 - HYPERLIPIDEMIA, UNSPECIFIED (4) HTN (hypertension) Code(s): I10 - ESSENTIAL (PRIMARY) HYPERTENSION (5) High glucose Code(s): R73.09 - OTHER ABNORMAL GLUCOSE (6) Uncontrolled diabetes mellitus Code(s): E11.65 - TYPE 2 DIABETES MELLITUS WITH HYPERGLYCEMIA (7) Anemia Code(s): D64.9 - ANEMIA, UNSPECIFIED (8) CAD (coronary artery disease) Code(s): I25.10 - ATHSCL HEART DISEASE OF [place] CORONARY ARTERY W/O ANG PCTRS Assessment/Plan Current Active Problems EMMA (acute kidney injury) (Acute) Abnormal EKG (Acute) HLD (hyperlipidemia) (Acute) HTN (hypertension) (Acute) High glucose (Acute) Uncontrolled diabetes mellitus (Acute) Abnormal Lab Results 09/28/19 09/28/19 09/29/19 21:45 21:45 06:08 RDW 16.3 H MPV 11.6 H PT with INR INR Potassium 3.4 L Anion Gap Random Glucose Hemoglobin A1c % 13.6 H Alkaline Phosphatase Total Protein Albumin 09/29/19 09/29/19 06:08 06:15 RDW MPV PT with INR 40.70 H INR 3.41 H Potassium 3.3 L Anion Gap 4 L Random Glucose 142 H Hemoglobin A1c % Alkaline Phosphatase 39 L Total Protein 6.0 L Albumin 3.1 L Laboratory Results - last 24 hr 09/28/19 09/28/19 09/28/19 21:45 21:45 22:03 WBC RBC Hgb Hct MCV MCH MCHC RDW Plt Count MPV PT with INR INR Sodium Potassium 3.4 L Chloride Carbon Dioxide Anion Gap BUN Creatinine Est GFR (CKD-EPI)AfAm Est GFR (CKD-EPI)NonAf POC Glucometer 266 Random Glucose Hemoglobin A1c % 13.6 H Calcium Total Bilirubin AST ALT Alkaline Phosphatase Total Protein Albumin 09/29/19 09/29/19 09/29/19 06:08 06:08 06:15 WBC 5.3 RBC 5.07 Hgb 13.5 Hct 41.7 MCV 82.2 MCH 26.6 MCHC 32.4 RDW 16.3 H Plt Count 156 MPV 11.6 H PT with INR 40.70 H INR 3.41 H Sodium 139 Potassium 3.3 L Chloride 105 Carbon Dioxide 31 Anion Gap 4 L BUN 12.1 Creatinine 0.8 Est GFR (CKD-EPI)AfAm 97.55 Est GFR (CKD-EPI)NonAf 84.17 POC Glucometer Random Glucose 142 H Hemoglobin A1c % Calcium 8.8 Total Bilirubin 0.5 AST 24 ALT 30 Alkaline Phosphatase 39 L Total Protein 6.0 L Albumin 3.1 L 09/29/19 09/29/19 09/29/19 06:23 12:10 16:39 WBC RBC Hgb Hct MCV MCH MCHC RDW Plt Count MPV PT with INR INR Sodium Potassium Chloride Carbon Dioxide Anion Gap BUN Creatinine Est GFR (CKD-EPI)AfAm Est GFR (CKD-EPI)NonAf POC Glucometer 136 178 301 Random Glucose Hemoglobin A1c % Calcium Total Bilirubin AST ALT Alkaline Phosphatase Total Protein Albumin 09/29/19 21:04 WBC RBC Hgb Hct MCV MCH MCHC RDW Plt Count MPV PT with INR INR Sodium Potassium Chloride Carbon Dioxide Anion Gap BUN Creatinine Est GFR (CKD-EPI)AfAm Est GFR (CKD-EPI)NonAf POC Glucometer 234 Random Glucose Hemoglobin A1c % Calcium Total Bilirubin AST ALT Alkaline Phosphatase Total Protein Albumin plan: bgm qid novolog scale diet 1800 ines ada levemir 20 iu bid titrate up
[2019-09-30] MEDS: GABAPENTIN 400 MG CAPSULE PO SCH (06:25)
[2019-09-30] MEDS: SODIUM CHLORIDE 1,000 ML IV SCH (06:25)
[2019-09-30] MEDS: INSULIN SLIDING SCALE (NOVOLOG) 1 VIAL SQ SCH ×2 (06:30→11:29)
[2019-09-30] MEDS ORDERED: INSULIN (LEVEMIR) 100 UNITS/ML UNITS SQ SCH (07:00)
--- NOTE | 2019-09-30 07:22 | DS ---
Physical Examination Vital Signs: Vital Signs Temperature 98.0 F 09/30/19 05:57 Pulse Rate 77 09/30/19 05:57 Respiratory Rate 20 09/30/19 05:57 Blood Pressure 95/65 09/30/19 05:57 O2 Sat by Pulse Oximetry (%) 99 09/29/19 20:41 Findings/Remarks: AWAKE ALERT FEELING BETTER Constitutional: Yes: No Distress Eyes: Yes: WNL HENT: Yes: WNL Neck: Yes: WNL Cardiovascular: Yes: Pulse Irregular Respiratory: Yes: WNL Gastrointestinal: Yes: WNL Musculoskeletal: Yes: WNL Extremities: Yes: WNL Edema: No Integumentary: Yes: WNL Wound/Incision: Yes: Clean/Dry Neurological: Yes: WNL ...Motor Strength: WNL Psychiatric: Yes: WNL Labs: CBC, BMP 09/29/19 06:08 Discharge Summary Problems reviewed: Yes Reason For Visit: HIGH GLUCOSE LEVEL Current Active Problems EMMA (acute kidney injury) (Acute) Abnormal EKG (Acute) HLD (hyperlipidemia) (Acute) HTN (hypertension) (Acute) High glucose (Acute) Uncontrolled diabetes mellitus (Acute) Procedures: Principal: ECHO Other Procedures: LABS/CX Hospital Course: ADMITTED FOR CARDIAC AND RESPIRATORY WORKUP, ECHO DONE NO ACUTE CHANGES, A1C% ELEVATED, ENDOCRINE WORKUP DONE NUTRITION MENU GIVEN, STARTED INSULIN AND WILL NEED TO SEE ME IN 2 DAYS FOR LABS AND FOLLOW UP. Plan of Treatment: CHECK YOUR BLOOD SUGAR 3 X DAY, SEE DR BURR IN 2 DAYS HOME HEALTH AID SENT FOR DIABETES EDUCATION AND MED FOLLOW UP Condition: Stable - Instructions Diet, Activity, Other Instructions: HOME HEALTH AID SENT FOR BGM CHECKS AND EDUCATION SEE DR BURR IN 2 DAYS\ [phone] 2PM ThursdaySep Referrals: Celina Jaimes [Primary Care Provider] - Disposition: VNS/HOME HEALTH CARE - Home Medications Comprehensive Discharge Medication List: Ambulatory Orders Aspirin [ASA -] 81 mg PO DAILY 02/18/19 Atorvastatin Ca [Lipitor] 80 mg PO HS 02/18/19 Gabapentin 400 mg PO TID 02/18/19 Paroxetine HCl [Paxil -] 10 mg PO DAILY 02/18/19 Warfarin Sodium [Coumadin] 10 mg PO DAILY 02/18/19 Atenolol/Chlorthalidone [Atenolol-Chlorthalidone 100-25] 1 each PO DAILY Dulaglutide [Trulicity] 0.75 mg SQ WEEKLY 09/27/19 Warfarin Sodium 10 mg PO HS 09/27/19 metFORMIN HCL [Metformin HCl] 1,000 mg PO BID 09/27/19 Albuterol 0.083% Nebulizer [place] [Ventolin 0.083% Nebulizer Soln -] 1 amp NEB Q6H PRN #120 amp 09/30/19 Insulin Glargine,Hum.rec.anlog [Basaglar Kwikpen U-100] 100 unit SQ BID #4 insuln.pen 09/30/19 Insulin Lispro [Humalog Kwikpen U-200] 200 unit SQ ACHS #4 insuln.pen 09/30/19 Tiotropium Br/Olodaterol HCl [Stiolto Respimat Inhal [place]] 1 puff PO PRN PRN # 1 mist.inhal 09/30/19
[2019-09-30 07:44] LABS: INR 2.65 (0.83-1.09); PROTHROMBIN TIME (PATIENT) 31.6 SEC (9.7-13.0)
[2019-09-30 07:56] LABS: BLOOD UREA NITROGEN 9.6 mg/dL (7-18); CALCIUM 8.7 mg/dL (8.5-10.1); MAGNESIUM 1.6 mg/dL (1.8-2.4); POTASSIUM 3.8 mmol/L (3.5-5.1)
[2019-09-30] MEDS: ASPIRIN 81 MG CHEWABLE TABLETS PO SCH (09:35)
[2019-09-30] MEDS: PARoxetine HCL 10 MG TABLET PO SCH (09:35)
[2019-09-30] MEDS: TIOTROPIUM/OLODATEROL HCL (STIOLTO) 4 GM INHALER IH SCH (09:35)
[2019-09-30] MEDS: ATENOLOL 50 MG TABLET (FP) PO SCH (11:31)
[2019-09-30 11:56] VITALS: TEMP 98.2
[2019-09-30 11:57] VITALS: BP 110/70; PULSE 76
== END 2019-09-30 11:55 | disposition home health service (06) | DRG 420 ==
LOC: JER 13:13 → JERBED 19:25 → J4S 09-28 20:41
PROVIDERS: ADMIT Internal Medicine; ATTEND Family Medicine
DX: E11.65 Type 2 diabetes mellitus with hyperglycemia (principal); E11.649 Type 2 diabetes mellitus with hypoglycemia without coma; E11.22 Type 2 diabetes mellitus with diabetic chronic kidney disease; I13.0 Hypertensive heart and chronic kidney disease with heart failure and stage 1 through stage 4 chronic kidney disease, or unspecified chronic kidney disease; N18.9 Chronic kidney disease, unspecified; I50.9 Heart failure, unspecified; Z79.4 Long term (current) use of insulin; E78.5 Hyperlipidemia, unspecified; I25.2 Old myocardial infarction; R35.8 Other polyuria; J44.9 Chronic obstructive pulmonary disease, unspecified; I05.0 Rheumatic mitral stenosis; I25.10 Atherosclerotic heart disease of native coronary artery without angina pectoris
CPT/HCPCS: 36415; 71045-TC-FY; 80048; 80053; 81003; 82010; 82550; 82803; 82962; 83036; 83605; 83690; 83735; 83880; 84100; 84132; 84484; 85025; 85027; 85610; 85730; 87040; 87086; 93005; 93010; 93306-TC; 99285-25; J1644; J3535; J7030